=== PATIENT | female | born 1940 | race Caucasian/White ===

== ENCOUNTER → 2017-11-12 09:16 | Outpatient (CLI) | payer MEDICARE, OTHER, SELFPAY ==
--- NOTE | 2017-11-12 | DI.MG.S_ITS ---
UNILATERAL LEFT DIGITAL SCREENING MAMMOGRAM 3D/2D WITH CAD: 11/12/2017 CLINICAL: Routine screening. Personal history of right breast cancer. Family history of breast cancer. Comparison is made to exams dated: 10/24/2016 mammogram, 10/24/2015 mammogram, and 09/02/2014 mammogram - [facility]. The tissue of the left breast is heterogeneously dense. This may lower the sensitivity of mammography. Current study was also evaluated with a Computer Aided Detection (CAD) system. There are benign calcifications in the left breast. There also are post operative findings in the left breast. No significant masses, calcifications, or other findings are seen in the breast. There has been no significant interval change. IMPRESSION: BENIGN There is no mammographic evidence of malignancy. A 1 year screening mammogram is recommended. This exam was interpreted at Station ID: [id number]. NOTE: For mammograms, a report in lay terms will be sent to the patient. Approximately 15% of breast malignancies will not be visualized mammographically. In the management of a palpable breast mass, a negative mammogram must not discourage biopsy of a clinically suspicious lesion. Electronically Signed By: Jean Pierre suazo/beatriz:11/12/2017 10:48:49 letter sent: Normal Exam ACR BI-RADS Category 2: Benign Finding(s) 3342F
[2017-11-12 10:12] LABS: Alanine Aminotransferase 27 IU/L (9-52); Albumin 4.2 g/dL (3.5-5.0); Albumin Globulin Ratio 1.6 (1.0-2.8); Alkaline Phosphatase 65 U/L (38-126); Aspartate Aminotransferase 33 IU/L (14-36); BUN Creatinine Ratio 16.7 (6-22); Blood Urea Nitrogen 10 mg/dL (7-17); Calcium 9.3 mg/dL (8.4-10.2); Carbon Dioxide 29 mmol/L (22-32); Chloride 104 mmol/L (98-107); Cholesterol 147 mg/dL (140-199); Estimated Glomerular Filt Rate > 60.0 mL/min (>60); Globulin 2.7 g/dL (1.7-4.1); Glucose 99 mg/dL (80-110); HDL Cholesterol 84 mg/dL (40-60); HEMOLYSIS < 15 (0-50); LDL Cholesterol Calculated 47 mg/dL (<100); Sodium 141 mmol/L (137-145); Total Protein 6.9 g/dL (6.3-8.2); Triglycerides 81 mg/dL (35-150)
[2017-11-12 11:12] LABS: Creatinine Urine Random 41.9 mg/dL
[2017-11-12 11:16] LABS: Microalbumi Creatinin Ratio Ur 21.4 ug/mg CR (<30); Microalbumin Urine Random 0.9 mg/dL (0-1.6)
== END ==
PROVIDERS: PCP Registered Nurse; Visit Provider Registered Nurse
DX: Z12.31 Encounter for screening mammogram for malignant neoplasm of breast (principal); Z85.3 Personal history of malignant neoplasm of breast; Z80.3 Family history of malignant neoplasm of breast; I10 Essential (primary) hypertension
CPT/HCPCS: 36415; 77063; 77065; 77067; 80053; 80061; 82043; 82570

== ENCOUNTER → 2017-11-20 09:52 | Outpatient (CLI) | payer MEDICARE, OTHER, SELFPAY ==
--- NOTE | 2017-11-20 09:53 | DI.RAD.S_ITS ---
This blank DEXA report has been sent in error by the PACS system. The correct and complete report will be forthcoming in 1-2 days. Thank you for your patience and understanding. Dictated by: Milvia Melissa MD, PhD on 11/20/2017 at 11:35 Approved by: Milvia Melissa MD, PhD on 11/21/2017 at 16:32
== END ==
PROVIDERS: PCP Registered Nurse; Visit Provider Registered Nurse
DX: M81.0 Age-related osteoporosis without current pathological fracture (principal)
CPT/HCPCS: 77080

== ENCOUNTER → 2018-05-14 13:57 | Outpatient (CLI) | payer MEDICARE, OTHER, SELFPAY ==
--- NOTE | 2018-05-14 14:00 | DI.RAD.S_ITS ---
PROCEDURE: XR CHEST 2V INDICATIONS: Productive cough TECHNIQUE: 2 views of the chest were acquired. COMPARISON: [facility], , CHEST 2 VIEW, 08/26/2015, 11:26. FINDINGS: Surgical changes and devices: None. Lungs and pleura: Lungs are abnormal with chronic interstitial prominence stable over time. Lung volumes are large, COPD is suspected.. No pleural effusions or pneumothorax. Mediastinum: Mediastinal contours are normal. Heart size is normal. Bones and chest wall: No suspicious bony abnormalities. Soft tissues appear unremarkable. IMPRESSION: COPD, chronic interstitial prominence but stable over time. A pneumonia is not identified. Dictated by: Paulo Tang M.D. on 05/14/2018 at 15:52 Approved by: Paulo Tang M.D. on 05/14/2018 at 15:53
== END ==
PROVIDERS: PCP Registered Nurse; Visit Provider Registered Nurse
DX: J44.9 Chronic obstructive pulmonary disease, unspecified (principal)
CPT/HCPCS: 71046

== ENCOUNTER 2019-02-07 09:48 | Observation (INO) | payer MEDICARE, OTHER, SELFPAY ==
[2019-02-07] VITALS (11 sets, daily range): BP systolic 107–169; BP diastolic 52–91; PULSE 85–144; RESP 15–22; TEMP 36.4–36.9; O2SAT 97–99; BMI 18.9
--- NOTE | 2019-02-07 09:58 | DI.CT.S_ITS ---
PROCEDURE: CT HEAD/BRAIN WO CON INDICATIONS: mental status change TECHNIQUE: Noncontrast 4.5 mm thick angled axial sections acquired from the foramen magnum to the vertex, with coronal and sagittal reformats. For radiation dose reduction, the following was used: automated exposure control, adjustment of mA and/or kV according to patient size. COMPARISON: None. FINDINGS: Image quality: Excellent. CSF spaces: Basal cisterns are patent. No extra-axial fluid collections. Ventricles are normal in size and shape. Brain: No midline shift. No intracranial masses or hemorrhage. Perez-white matter interface is normal. Skull and face: Calvarium and visualized facial bones are intact, without suspicious lesions. Sinuses: Visualized sinuses and mastoids are clear. IMPRESSION: Age-appropriate head CT. No acute intracranial hemorrhage. Dictated by: Jovi Shine M.D. on 02/07/2019 at 9:42 Approved by: Jovi Shine M.D. on 02/07/2019 at 9:43
--- NOTE | 2019-02-07 09:59 | DI.RAD.S_ITS ---
PROCEDURE: XR CHEST 1V INDICATIONS: fatigue, SOB, confusion TECHNIQUE: One view of the chest was acquired. COMPARISON: [facility], CR, XR CHEST 2V, 05/14/2018, 14:03. FINDINGS: Surgical changes and devices: None. Lungs and pleura: Lungs are clear. There may be mild scarring within the lung apices. No effusion or pneumothorax. Mediastinum: Mediastinal contours appear normal. Heart size is enlarged. Bones and chest wall: No suspicious bony lesions. Overlying soft tissues appear unremarkable. IMPRESSION: Cardiomegaly without overt heart failure. No definite pneumonia. Dictated by: Jovi Shine M.D. on 02/07/2019 at 9:41 Approved by: Jovi Shine M.D. on 02/07/2019 at 9:42
[2019-02-07] MEDS: SODIUM CHLORIDE 0.9% 1,000 ML 150 ML IV (10:06)
[2019-02-07] MEDS: dilTIAZem 5 MG/ML SDV 10 MG IV (10:06)
--- NOTE | 2019-02-07 10:07 | ED_ITS ---
HPI - Neuro Symptoms/Deficit General Chief Complaint: Neuro Symptoms/Deficit Stated Complaint: Discombobulated Time Seen by Provider: 02/07/19 09:52 Source: family and other Mode of arrival: Ambulatory Limitations: altered mental status History of Present Illness HPI Narrative: 78-year-old female daily smoker with history of hypertension and hyperlipidemia presents with her neighbor and a chief complaint of confusion and not feeling right. She states she started feeling poorly on about and has had a decreased appetite and difficulty performing her normal daily tasks. Today she had had enough and went to get her neighbor who brought her here for evaluation. On arrival she was found to be in a rapid AFib in the 140s. During the check in process she did not know her birthday she was unclear of the month and could not sign her name on the paperwork. She denies any pain or recent injury. She has had no fever or shaking chills. She denies any history of stroke or TIA nor has she ever had atrial fibrillation. Onset (ago): day(s) Timing confirmed by: other Location: speech and altered History of same: No Severity: moderate Quality: weak and constant Relieving factors: none Exacerbating factors: none Context: other On Anticoagulants: No Associated symptoms: confusion Related Data Home Medications Medication Instructions Recorded Confirmed Flaxseed Oil (#FLAXSEED OIL) #0 11/29/10 10/28/18 aspirin #0 11/29/10 10/28/18 ascorbic acid (vitamin C) 500 mg PO QDAY #0 08/27/11 10/28/18 cholecalciferol (vitamin D3) 50 1,000 unit PO DAILY cap 11/05/17 10/28/18 mcg (2,000 unit) capsule multivitamin PO 12/05/17 10/28/18 Previous Rx's Medication Instructions Recorded calcium carbonate 600 mg calcium 600 mg PO DAILY #30 tab 12/05/17 (1,500 mg) tablet alendronate 70 mg tablet 70 mg PO QWEEK #12 tab 10/28/18 lisinopril 10 mg tablet 20 mg PO QDAY #180 tab 10/28/18 metoprolol succinate 50 mg 50 mg PO QDAY #90 tab 10/28/18 tablet,extended release 24 hr simvastatin 20 mg tablet 20 mg PO QDAY #90 tab 10/28/18 Allergies Allergy/AdvReac Type Severity Reaction Status Date / Time No Known Drug Allergies Allergy Unverified 10/28/18 10:26 Review of Systems Constitutional Constitutional: Denies chills, Denies fatigue, Denies fever(s), Denies frequent falls, Denies lethargy and Denies weakness Eyes Eyes: Denies change in vision, Denies eye discharge, Denies irritation and Denies loss of vision ENT Ears, Nose, Mouth, and Throat: Denies change in voice, Denies dizziness, Denies neck pain, Denies sore throat and Denies throat swelling Cardiovascular Cardiovascular: Denies chest pain, Denies irregular heart rhythm, Denies lightheadedness, Denies palpitations, Denies dyspnea, Denies dyspnea on exertion and Denies orthopnea Respiratory Respiratory: Denies cough, Denies dyspnea, Denies dyspnea on exertion and Denies wheezing Gastrointestinal Gastrointestinal: Denies abdominal pain, Denies change in bowel habits, Denies diarrhea, Denies nausea and Denies vomiting Genitourinary Genitourinary: Denies hematuria, Denies flank pain, Denies urinary incontinence and Denies urinary urgency Musculoskeletal Musculoskeletal: Denies back pain, Denies muscle weakness, Denies neck pain, Denies numbness and Denies tingling Integumentary/Breasts Skin/Breast: Denies pruritus, Denies erythema, Denies rash and Denies wounds Neurologic Neurologic: Denies behavioral changes, Reports confusion, Denies dizziness, Denies frequent falls, Denies loss of vision, Denies numbness, Denies tingling and Denies weakness Psychiatric Psychiatric: Denies anxiety, Denies behavioral changes, Reports confusion, Denies depression, Denies homicidal ideation and Denies suicidal ideation Endocrine Endocrine: Denies fatigue, Denies flushing and Denies palpitations Hematologic/Lymphatic Hematologic/Lymphatic: Denies easy bruising Allergic/Immunologic Allergic/Immunologic: Denies urticaria, Denies throat swelling and Denies wheezing Patient History Medical History Breast cancer (Resolved) Cataract (Chronic ~03/2014) History of vaginal delivery (Resolved) Hyperlipidemia (Chronic) Hypertension (Chronic) Surgical History Anesthesia (Resolved) History of right mastectomy (Resolved 12/2002) Family History Brother Age: 73 Prostate cancer Diabetes mellitus Hypertension Child Age: 50 Hypertension High cholesterol Child Age: 47 Diabetes mellitus Hypertension High cholesterol Thrombocytopenic purpura Acid reflux Depression Heart attack Mother Diabetes mellitus Hypertension Stroke Breast cancer Sister Age: 80 Hypertension High cholesterol Family history of thyroid problem Father Pancreatic cancer Social History Smoking Status: Current every day smoker alcohol intake: current substance use type: does not use alcohol intake frequency: 0-2 drinks per day Substance Use Type: does not use Exam Narrative Exam Narrative: GENERAL: [78] year old patient appears stated age. Well- nourished, well-developed patient, in mild distress. Alert but confused. Aware of location, but not date HEAD: Atraumatic. Normocephalic. EYES: Pupils equal round and reactive. Extraocular motions intact. No scleral icterus. No injection or drainage. ENT: Nose without bleeding, purulent drainage. Throat without erythema, tons illar hypertrophy or exudate. Airway patent. NECK: Trachea midline. Non tender CARDIOVASCULAR: tachycardic and irregular rhythm without murmurs, gallops, or rubs. RESPIRATORY: Clear to auscultation. Breath sounds equal bilaterally. No wheezes, rales, or rhonchi. GASTROINTESTINAL: Abdomen soft, non-tender, nondistended. EXTREMITIES: No edema or joint tenderness. BACK: Nontender without deformity or crepitance. No flank tenderness. SKIN: No rash or erythema of visible areas Initial Vital Signs Initial Vital Signs: Vital Signs Temperature 98.1 F 02/07/19 09:50 Pulse Rate 144 H 02/07/19 09:50 Respiratory Rate 22 02/07/19 09:50 Blood Pressure 143/87 H 02/07/19 09:50 Pulse Oximetry 99 02/07/19 09:50 Scores ABCD2 Age >= 60 years: yes Initial BP. Either SBP >= 140 or DBP >= 90.: no Clinical features of the TIA: speech disturbance without weakness Duration of symptoms: >= 60 minutes History of diabetes: no ABCD2 Score: 4 Course Course Course Narrative: improved rapid atrial fib after cardizem, but patient still feeling poorly and a bit confused. Given her multiple comorbidities she will require hospitalization for continued evaluation and stabilization of her newly discovered AFib and possible TIA Orders Ordered: ED Orders 02/07/19 09:54 Basic Metabolic Panel Stat Complete Blood Count AUTO DIFF Stat Ethanol (ETOH) Stat Partial Thromboplastin Time Stat Prothrombin Time INR Stat 02/07/19 09:58 CT head/brain wo con Stat Urine Drug Screen, Rapid Stat EKG-12 Lead Stat 02/07/19 09:59 XR chest 1V Stat 02/07/19 10:51 EKG-12 Lead Stat Sodium Chloride (Normal Saline 0.9%) 1,000 mls @ 150 mls/hr IV CONT ERMIAS Last Admin: 02/07/19 10:06 Dose: 150 mls/hr Documented by: NICOLE Discontinued Medications Aspirin (Aspirin Chew) 324 mg PO NOW ONE Stop: 02/07/19 11:12 Diltiazem HCl (Cardizem) 10 mg IV NOW ONE Stop: 02/07/19 09:59 Last Admin: 02/07/19 10:06 Dose: 10 mg Documented by: NICOLE Vital Signs Vital signs: Vital Signs - 8 hr 02/07/19 09:50 02/07/19 10:00 02/07/19 10:06 Temperature 98.1 F Pulse Rate 144 H 143 H 143 H Respiratory Rate 22 20 Blood Pressure 143/87 H 169/79 H Blood Pressure [Right Arm] 169/79 H Pulse Oximetry 99 98 02/07/19 10:11 02/07/19 10:21 02/07/19 10:34 Temperature Pulse Rate 107 H 88 85 Respiratory Rate 19 18 18 Blood Pressure Blood Pressure [Right Arm] 137/86 141/91 H 134/75 Pulse Oximetry 98 99 98 02/07/19 10:53 Temperature Pulse Rate 90 Respiratory Rate 18 Blood Pressure Blood Pressure [Right Arm] 122/78 Pulse Oximetry 99 MDM - Neuro Symptoms/Deficit Lab Data Result diagrams: 02/07/19 09:54 02/07/19 09:54 Labs: Lab Results 02/07/19 02/07/19 02/07/19 Range/Units 09:54 09:54 09:54 WBC 8.2 (4.5-11.0) X10^3/uL RBC 5.02 (4.0-5.2) X10^6/uL Hgb 16.6 H (12.0-16.0) g/dL Hct 48.0 H (36-46) % MCV 95.5 (80-100) fL MCH 33.0 (26-34) PG MCHC 34.6 (30-36) % RDW 13.9 (11.6-14.8) % Plt Count 361 (150-400) X10^3/uL Neut % (Auto) 63.9 (50-75) % Lymph % (Auto) 28.7 (25-40) % Benton % (Auto) 6.6 (3-14) % Eos % (Auto) 0.3 L (2-4) % Baso % (Auto) 0.5 (0-2) % Neut # (Auto) 5200 (0250-3239) /uL Lymph # (Auto) 2400 (7677-8963) /uL Benton # (Auto) 500 (0-900) /uL Eos # (Auto) 0 (0-450) /uL Baso # (Auto) 0 (0-100) /uL PT 10.6 (10.1-12.7) SECONDS INR 0.9 (0.9-1.3) APTT 35 (26.4-36.2) SECONDS Sodium 134 L (137-145) mmol/L Potassium 4.3 (3.4-5.1) mmol/L Chloride 97 L (98-107) mmol/L Carbon Dioxide 24 (22-32) mmol/L BUN 15 (7-17) mg/dL Creatinine 0.80 (0.52-1.04) mg/dL Estimated GFR > 60.0 (>60) mL/min BUN/Creatinine Ratio 18.8 (6-22) Glucose 168 H (80-110) mg/dL Calcium 9.8 (8.4-10.2) mg/dL Ethyl Alcohol < 10 ( - 10) mg/dL Point of Care Testing Glucose POC [address] scan - head: Radiologist's impression: Aziza Alonzo 78 F [address] [address] [address] Scan Report Signed Patient: MinierLeopoldo moscosoothy LMR#: [id number] : 2Acct:[id number] Age/Sex: 78 / FDate of Service: 02/07/19 Loc: ED Accession Number: [id number] Procedure: CT head/brain wo con Ordering Provider: Brando Ramirez D.O. PROCEDURE: CT HEAD/BRAIN WO CON INDICATIONS: mental status change TECHNIQUE: Noncontrast 4.5 mm thick angled axial sections acquired from the foramen magnum to the vertex, with coronal and sagittal reformats. For radiation dose reduction, the following was used: automated exposure control, adjustment of mA and/or kV according to patient size. COMPARISON: None. FINDINGS: Image quality: Excellent. CSF spaces: Basal cisterns are patent. No extra-axial fluid collections. Ventricles are normal in size and shape. Brain: No midline shift. No intracranial masses or hemorrhage. Perez-white matter interface is normal. Skull and face: Calvarium and visualized facial bones are intact, without suspicious lesions. Sinuses: Visualized sinuses and mastoids are clear. IMPRESSION: Age-appropriate head CT. No acute intracranial hemorrhage. Dictated by: Jovi Shine M.D. on 02/07/2019 at 9:42 Approved by: Jovi Shine M.D. on 02/07/2019 at 9:43 Chest x-ray: Radiologist's impression: [facility] Diagn[facility] DATE TYPE STATUS AUTHOR Hx 02/07/19 09:59 Jovi Shine 02/07/19 09:58 Jovi Shine 05/14/18 14:00 Paulo Tang 11/20/17 09:53 Milvia Melissa 11/20/17 08:00 11/12/17 00:00 Jean Pierre Knapp Dorothy L 78, F0 1940 [facility], [facility] ED R02 51.7kg Neuro Symptoms/Deficit Search Chart No Data to Display NF - Not included in interaction checking ONSET Today 10:53 Aziza Alonzo 78 F [address] [address] XRay Report Signed Patient: ClintonAziza LMR#: [id number] : 1940cct:[id number] Age/Sex: 78 / FDate of Service: 02/07/19 Loc: ED Accession Number: [id number] Procedure: XR chest 1V Ordering Provider: Brando Ramirez D.O. PROCEDURE: XR CHEST 1V INDICATIONS: fatigue, SOB, confusion TECHNIQUE: One view of the chest was acquired. COMPARISON: [facility], CR, XR CHEST 2V, 05/14/2018, 14:03. FINDINGS: Surgical changes and devices: None. Lungs and pleura: Lungs are clear. There may be mild scarring within the lung apices. No effusion or pneumothorax. Mediastinum: Mediastinal contours appear normal. Heart size is enlarged. Bones and chest wall: No suspicious bony lesions. Overlying soft tissues appear unremarkable. IMPRESSION: Cardiomegaly without overt heart failure. No definite pneumonia. Dictated by: Jovi Shine M.D. on 02/07/2019 at 9:41 Approved by: Jovi Shine M.D. on 02/07/2019 at 9:42 ECG Data Interpretation: rapid atrial fib 140s, no ischemic change repeat notes atrial fib at 80, no other ischemia Discharge Plan Departure Patient Disposition: Admitted as Observation Clinical Impression: Brain TIA Atrial fibrillation Qualifiers: Atrial fibrillation type: unspecified Qualified Code(s): I48.91 - Unspecified atrial fibrillation
[2019-02-07 10:10] LABS: INR 0.9 (0.9-1.3); Prothrombin Time 10.6 SECONDS (10.1-12.7)
[2019-02-07 10:12] LABS: PTT Partial Thromboplastin Tim 35 SECONDS (26.4-36.2)
[2019-02-07 10:27] LABS: Add Manual Diff / Slide Review NO; Basophils Absolute Auto 0 /uL (0-100); Basophils Percent Auto 0.5 % (0-2); Eosinophils Absolute Auto 0 /uL (0-450); Eosinophils Percent Auto 0.3 % (2-4); Hemoglobin 16.6 g/dL (12.0-16.0); Lymphocytes Absolute Auto 2400 /uL (1100-4500); Lymphocytes Percent Auto 28.7 % (25-40); Mean Corpuscular HGB Conc 34.6 % (30-36); Mean Corpuscular Volume 95.5 fL (80-100); Monocytes Absolute Auto 500 /uL (0-900); Monocytes Percent Auto 6.6 % (3-14); Neutrophils Absolute Auto 5200 /uL (1500-7000); Neutrophils Percent Auto 63.9 % (50-75); Platelet Count 361 X10^3/uL (150-400); Red Blood Cell Count 5.02 X10^6/uL (4.0-5.2); Red Cell Distribution Width 13.9 % (11.6-14.8); White Blood Cell Count 8.2 X10^3/uL (4.5-11.0)
--- NOTE | 2019-02-07 10:29 | PC.NURSE ---
+ moving all extremities equally well w/ equal strength. Balance appears to be intact. When answering questions pt's speech is slow to finish sentences and she has word searching. She states she feels as if she woke up feeling well but also states that she has not felt 'all there' over the last two days. She has not been smoking as much as she usually does. Neighbor present states that she is normally completely a/o x 4 w/o any difficulty w/ speech or functioning.
--- NOTE | 2019-02-07 10:34 | PC.NURSE ---
Speech fluidity and content / memory much improved. Neighbor states she is 'almost' at baseline.
[2019-02-07 10:39] LABS: BUN Creatinine Ratio 18.8 (6-22); Blood Urea Nitrogen 15 mg/dL (7-17); Calcium 9.8 mg/dL (8.4-10.2); Carbon Dioxide 24 mmol/L (22-32); Chloride 97 mmol/L (98-107); Estimated Glomerular Filt Rate > 60.0 mL/min (>60); Ethanol (ETOH) < 10 mg/dL; Glucose 168 mg/dL (80-110); HEMOLYSIS < 15 (0-50); Potassium 4.3 mmol/L (3.4-5.1); Sodium 134 mmol/L (137-145)
[2019-02-07] MEDS: ASPIRIN 81 MG CHEW TAB 324 MG PO (12:07)
[2019-02-07 14:00] LABS: Ur Creatinine Normal (Normal); Ur Specific Gravity Normal (Normal); Urine pH Normal (Normal)
[2019-02-07 14:01] LABS: UR Morphine/Opiate cutoff 300 Negative (Negative); Urine Amphetamines Negative (Negative); Urine Barbiturates Negative (Negative); Urine Benzodiazepines Negative (Negative); Urine Cocaine Negative (Negative); Urine MDMA Negative (Negative); Urine Methadone Negative (Negative); Urine Methamphetamines Negative (Negative); Urine Oxycodone Negative (Negative); Urine Phencyclidine Negative (Negative); Urine Tetrahydrocannabinol Negative (Negative); Urine Tricyclic Antidepressant Negative (Negative)
--- NOTE | 2019-02-07 14:16 | DI.ECHO.S_ITS ---
[facility]---------+ [facility] +---------+ : : [address] : : : : [id number] : : : : Phone: [phone] Echocardiogram Report + + :Name: SAMINA HANSON Study Date: 02/08/2019 Height: 65 in : :[facility] Weight: 114 lb : : Gender: Female BSA: 1.6 m2 : :: 1940 Age: 78 yrs BP: 160/86 mmHg: :Reason For Study: Atrial fibrillation : :Ordering Physician: Zhen : :Hospitalist Performed By: Serge Salinas : :Referring: RENETTA MASSEY : + + Interpretation Summary Left ventricular systolic function is normal without focal wall motion abnormalities with the ejection fraction visually estimated to be 65-70%. There is borderline concentric left ventricular hypertrophy but diastolic function could not be accurately assessed due to atrial fibrillation. The right ventricle is borderline dilated and right ventricular systolic function is mildly reduced. Pulmonary artery pressures cannot be estimated because of the lack of a measurable TR jet velocity but the IVC suggests a CVP of around 3 mmHg and Doppler findings do not suggest pulmonary hypertension. The left atrium is mildly dilated. There is mild mitral regurgitation and mild to moderate tricuspid regurgitation but no other significant valvular heart disease. The ascending aorta is mildly enlarged. There is mild luminal irregularity and echogenicity in the abdominal aorta, suggestive of aortic atherosclerotic disease. The patient was in atrial fibrillation with heart rates between 78-92 bpm during the exam. Procedure: A two-dimensional transthoracic echocardiogram with color flow and Doppler was performed. The study quality was technically adequate. There is no prior echocardiogram noted for this patient. The patient was in atrial fibrillation with heart rates between 78-92 bpm during the exam. Left Ventricle: The left ventricle is normal in size. There is borderline concentric left ventricular hypertrophy. Proximal septal thickening is noted. Left ventricular systolic function is normal without focal wall motion abnormalities. The ejection fraction is estimated to be 65-70%. Diastolic function could not be accurately assessed due to atrial fibrillation. Right Ventricle: The right ventricle is borderline dilated. Right ventricular systolic function is mildly reduced. Atria: The left atrium is mildly dilated. Right atrial size is normal. The interatrial septum is intact with no evidence for an atrial septal defect. Mitral Valve: There is moderate to severe mitral annular calcification. The mitral valve leaflets appear borderline thickened, but open well. There is mild mitral regurgitation. Aortic Valve: The aortic valve is trileaflet. The aortic valve is mildly calcified. There is minimally reduced leaflet mobility. There is no aortic valve stenosis. No aortic regurgitation is present. Tricuspid Valve: The tricuspid valve is normal. There is mild to moderate tricuspid regurgitation. Pulmonary artery pressures cannot be estimated because of the lack of a measurable TR jet velocity but the IVC suggests a CVP of around 3 mmHg. Doppler findings do not suggest pulmonary hypertension. Pulmonic Valve: The pulmonic valve leaflets are thin and pliable; valve motion is normal. There is no pulmonic valvular regurgitation. There is no other significant valvular heart disease. Great Vessels: The aortic root is normal size. The ascending aorta is mildly enlarged. There is mild luminal irregularity and echogenicity in the abdominal aorta, suggestive of aortic atherosclerotic disease. The pulmonary artery is normal size. The IVC is of normal diameter and collapses greater than 50% with a sniff. This suggests a low right atrial pressure of 3 mm Hg. Pericardium/ Pleura There is no pericardial effusion. There is no pleural effusion. MMode/2D Measurements & Calculations LVIDd: 4.2 cm LVOT diam: 2.0 cm LV talamantes. diameter/BSA (cm/m^2): 2.7 Ao root diam: 3.3 cm asc Aorta Diam: 3.5 cm Ao Arch Diam (Prox Trans): 2.5 cm LA A2 area: 24.3 cm2 RA long axis: 5.4 cm LA A4 area: 15.2 cm2 RA area: 14.4 cm2 LA length (vol): 5.6 cm RA vol: 32.5 ml LA vol: 56.0 ml RA : 20.9 ml/m2 LA vol index: 35.9 ml/m2 IVC diam: 1.8 cm RVD1 (basal): 4.2 cm TAPSE: 1.4 cm Doppler Measurements & Calculations Ao V2 max: 121.9 cm/sec LVOT Max Star: 111.1 cm/sec Ao V2 mean: 93.7 cm/sec LV V1 max P.0 mmHg Ao max P.0 mmHg LV V1 VTI: 18.9 cm Ao mean P.8 mmHg SUSY(I,D): 3.0 cm2 Ao V2 VTI: 19.1 cm SUSY(V,D): 2.8 cm2 sev ratio: 0.99 SUSY indexed to BSA (cm^2/m^2): 1.9 MV E max star: 91.9 cm/sec SV(LVOT): 57.2 ml Reading Physician:DYAN
--- NOTE | 2019-02-07 14:22 | P.HP_ITS ---
History of Present Illness History of Present Illness Date Patient Seen: 02/07/19 Chief complaint: Discombobulated Narrative: Patient is a 78-year-old female with a history of hypertension, hyperlipidemia, COPD, osteoporosis, who was in her usual state of health until yesterday. The patient stated that she felt lightheaded. Today in addition to feeling lightheaded she felt confused. She krista neighbors to bring her to the hospital because of the confusion and lightheadedness. The patient had no blurred vision double vision, slurred speech, weakness of her arms or legs, she had no facial droop. The patient was seen and evaluated in the emergency department. She was found to be in atrial fibrillation with a rapid ventricular response rate, she was given 1 dose of Cardizem with improvement of her heart rate to the 80s. Since she has arrived to the floor her heart rate is now 135. She denies any orthopnea PND pedal edema or chest pain. She has had no fever chills or cough. She has no nausea vomiting or diarrhea. She denies any dysuria hematuria or the patient is a smoker. She has over 50 pack year history of smoking and currently smokes a half a pack per day. She was offered a nicotine patch for her nicotine addiction which she has since declined. Because of her confusion CT of the head was obtained which was negative. Patient is admitted to the hospital for further evaluation of atrial fibrillation. Patient History Medical History Breast cancer (Resolved) Cataract (Chronic ~03/2014) History of vaginal delivery (Resolved) Hyperlipidemia (Chronic) Hypertension (Chronic) Surgical History Anesthesia (Resolved) History of right mastectomy (Resolved 12/2002) Family & Social History Family History Brother Age: 73 Prostate cancer Diabetes mellitus Hypertension Child Age: 50 Hypertension High cholesterol Child Age: 47 Diabetes mellitus Hypertension High cholesterol Thrombocytopenic purpura Acid reflux Depression Heart attack Mother Diabetes mellitus Hypertension Stroke Breast cancer Sister Age: 80 Hypertension High cholesterol Family history of thyroid problem Father Pancreatic cancer Social History: household members none Prior Living Arrangements Mobile home Safety & Behavioral: Feels Safe in Current Yes Environment Been Physically Hurt or No Threatened By a Person Suicidal Ideation Description None Suicide Plan Description No Plan Tobacco & Substance use: Smoking Status Current every day smoker alcohol intake current alcohol intake frequency 0-2 drinks per day Substance Use Type does not use Meds Home Medications and Allergies Home Medications Medication Instructions Recorded Confirmed Type aspirin 81 mg PO DAILY #0 11/29/10 02/07/19 History cholecalciferol (vitamin D3) 50 2,000 unit PO DAILY cap 11/05/17 02/07/19 History mcg (2,000 unit) capsule calcium carbonate 600 mg calcium 600 mg PO DAILY #30 tab 12/05/17 02/07/19 Rx (1,500 mg) tablet alendronate 70 mg tablet 70 mg PO QWEEK #12 tab 10/28/18 02/07/19 Rx lisinopril 10 mg tablet 20 mg PO QDAY #180 tab 10/28/18 02/07/19 Rx metoprolol succinate 50 mg 50 mg PO QDAY #90 tab 10/28/18 02/07/19 Rx tablet,extended release 24 hr simvastatin 20 mg tablet 20 mg PO QDAY #90 tab 10/28/18 02/07/19 Rx latanoprost 1 drp EYE-BOTH DAILY 02/07/19 02/07/19 History timolol maleate 1 drp EYE-BOTH BID 02/07/19 02/07/19 History Allergies Allergy/AdvReac Type Severity Reaction Status Date / Time No Known Drug Allergies Allergy Unverified 10/28/18 10:26 Review of Systems Review of Systems ROS Unobtainable: All systems reviewed & are unremarkable except as noted in HPI and below Exam Vital Signs (past 8 hours): - 02/07/19 09:50 02/07/19 10:00 02/07/19 10:06 Temperature 98.1 F Pulse Rate 144 H 143 H 143 H Respiratory Rate 22 20 Blood Pressure 143/87 H 169/79 H Blood Pressure [Right Arm] 169/79 H Pulse Oximetry 99 98 02/07/19 10:11 02/07/19 10:21 02/07/19 10:34 Temperature Pulse Rate 107 H 88 85 Respiratory Rate 19 18 18 Blood Pressure Blood Pressure [Right Arm] 137/86 141/91 H 134/75 Pulse Oximetry 98 99 98 02/07/19 10:53 02/07/19 11:58 02/07/19 13:15 Temperature 97.5 F L Pulse Rate 90 96 H 102 H Respiratory Rate 18 18 16 Blood Pressure 160/86 H Blood Pressure [Right Arm] 122/78 147/65 H Pulse Oximetry 99 97 99 Oxygen Delivery Method Room Air Oxygen Flow Rate 0 Narrative Exam Narrative: Pleasant female sitting in a chair in no obvious distress HEENT: Normocephalic atraumatic, extraocular muscles are intact, visual ortega are intact to confrontation, oropharynx is clear, neck is supple, there is no thyromegaly, carotid bruits, or JVD noted Lungs: Clear to auscultation Cardiac exam: Tachycardic, irregularly irregular, 3/6 systolic ejection murmur Abdomen: Soft nontender nondistended, no hepatosplenomegaly Extremities: No edema Skin exam: No lesions noted Psychiatric exam: The patient is awake alert and appropriate, she answers questions appropriately she has no delusions or hallucinations. Neuro exam: Her NIH score is 0. Her cranial nerves 2-12 are intact, strength is symmetric and equal, sensation is grossly intact reflexes are brisk and equal, gait is not assessed Objective Labs Result Diagrams: 02/07/19 09:54 02/07/19 09:54 Labs: Laboratory Results - last 24 hr 02/07/19 02/07/19 02/07/19 09:54 09:54 09:54 WBC 8.2 RBC 5.02 Hgb 16.6 H Hct 48.0 H MCV 95.5 MCH 33.0 MCHC 34.6 RDW 13.9 Plt Count 361 Neut % (Auto) 63.9 Lymph % (Auto) 28.7 [place] % (Auto) 6.6 Eos % (Auto) 0.3 L Baso % (Auto) 0.5 Neut # (Auto) 5200 Lymph # (Auto) 2400 [place] # (Auto) 500 Eos # (Auto) 0 Baso # (Auto) 0 PT 10.6 INR 0.9 APTT 35 Sodium 134 L Potassium 4.3 Chloride 97 L Carbon Dioxide 24 BUN 15 Creatinine 0.80 Estimated GFR > 60.0 BUN/Creatinine Ratio 18.8 Glucose 168 H Calcium 9.8 U Morph 300 ng/mL cutoff Ur Oxycodone Screen Urine Methadone Screen Ur Barbiturates Screen U Tricyclic Antidepress Ur Phencyclidine Scrn Ur Amphetamines Screen U Methamphetamines Scrn Ur MDMA Scrn (Ecstasy) U Benzodiazepines Scrn Urine Cocaine Screen U Marijuana (THC) Screen Ethyl Alcohol < 10 02/07/19 13:15 WBC RBC Hgb Hct MCV MCH MCHC RDW Plt Count Neut % (Auto) Lymph % (Auto) [place] % (Auto) Eos % (Auto) Baso % (Auto) Neut # (Auto) Lymph # (Auto) [place] # (Auto) Eos # (Auto) Baso # (Auto) PT INR APTT Sodium Potassium Chloride Carbon Dioxide BUN Creatinine Estimated GFR BUN/Creatinine Ratio Glucose Calcium U Morph 300 ng/mL cutoff Negative Ur Oxycodone Screen Negative Urine Methadone Screen Negative Ur Barbiturates Screen Negative U Tricyclic Antidepress Negative Ur Phencyclidine Scrn Negative Ur Amphetamines Screen Negative U Methamphetamines Scrn Negative Ur MDMA Scrn (Ecstasy) Negative U Benzodiazepines Scrn Negative Urine Cocaine Screen Negative U Marijuana (THC) Screen Negative Ethyl Alcohol Assessment & Plan Assessment & Plan narrative: Impression 1. 78-year-old female admitted to the hospital for lightheadedness and confusion. On exam in the emergency department the patient was found to have atrial fibrillation with a rapid ventricular response rate. -patient will be admitted to the hospital for further evaluation. She will be placed on metoprolol 50 Q 6. This is a normal medication for her. She typically takes 50 mg per day. Will obtain a BNP to rule out the possibility of heart failure, will obtain a cardiac echo to look at LV function as well as valvular abnormalities given her history of a murmur on exam. The patient has a chads Vasc score of 4. Indicating that the patient would benefit from anticoagulation. We have discussed the possibility of starting Xarelto. It would consider initiating this after echocardiogram results. 2. Confusion, suspect this is related to rapid atrial fibrillation. It no evidence of ischemic stroke or TIA at this time. Will continue her baby aspirin per day 3. Hyperlipidemia, will obtain a fasting lipid profile, continue her simvastatin at this time 4. Hypertension, patient was previously managed with lisinopril in addition to metoprolol. Given her atrial fibrillation in need for rate control will hold her lisinopril, will increase metoprolol to 50 mg Q 6. Will evaluate echo and if the patient has reduced systolic function consider restarting lisinopril. 5. Osteoporosis, patient will continue on her bisphosphonate, calcium, and vitamin-D. Code status patient indicates she is a full code will note that a regular accordingly. Patient will be in under observation status as it is expected that she will require less than 48 hours of care. Quality VTE Deep Vein Thrombosis/Pulmonary Embolism Present on Admission: No
[2019-02-07] MEDS: METOPROLOL IR 50 MG TABLET PO ×2 (14:24→17:27)
--- NOTE | 2019-02-07 14:48 | PC.NURSE ---
1300 Pt arrived from ED via tretcher. Pt able to ambulate to BRP, then to the bed. Pt denies any confusion, speech is clear. Collected a urine specimen. Pt even gait, walks w/o assist. SL to L FA. 1330 Dr Zapata in to assess Pt. on tele, a fib, ht rt ranges from 98 to 138. MD aware. 1400 Pt oob chair, ate sandwich/yogurt. Inst on safety, use of call light. Pt
[2019-02-07 16:08] LABS: Cholesterol 173 mg/dL (140-199); HDL Cholesterol 62 mg/dL (40-60); LDL Cholesterol Calculated 86 mg/dL (<100); Triglycerides 126 mg/dL (35-150)
[2019-02-07 16:13] LABS: B Type Natriuretic Peptide 599 (<100)
[2019-02-07] MEDS: TIMOLOL 0.5% OPHTH 1 DROPS EYE-BOTH (20:19)
[2019-02-07] MEDS: LATANOPROST 0.005% OPHTH 2.5 ML 1 DROPS EYE-BOTH (20:21)
[2019-02-07] MEDS: SIMVASTATIN 20 MG TABLET PO (20:22)
[2019-02-08 00:05] VITALS: BP 110/41; PULSE 82; RESP 19; TEMP 36.8; O2SAT 97
[2019-02-08] MEDS: METOPROLOL IR 50 MG TABLET PO ×3 (00:14→12:39)
--- NOTE | 2019-02-08 03:04 | PC.NURSE ---
Pt was hypotensive/tachycardic at 0000, VS 110/41 HR 82. Ekaterina MICHELE notified, asked if she wanted me to still give 0000 metoprolol and Ekaterina said she still wanted me to administer 50mg metoprolol. Pt tele: A-fib. Pt denies pain, nausea, dizziness. Call light is in within reach.
[2019-02-08 05:23] VITALS: BP 127/68; PULSE 92; RESP 17; TEMP 36.5; O2SAT 96
[2019-02-08 07:43] VITALS: BP 127/82; PULSE 77; RESP 16; TEMP 36.8; O2SAT 96
[2019-02-08] MEDS: TIMOLOL 0.5% OPHTH 1 DROPS EYE-BOTH (08:51)
[2019-02-08] MEDS: CALCIUM CARBONATE 600 MG TABLET PO (08:51)
[2019-02-08] MEDS: CHOLECALCIFEROL (VITAMIN D3) 1,000 UNIT TABLET 2000 UNIT PO (08:51)
[2019-02-08 08:56] LABS: BUN Creatinine Ratio 18.3 (6-22); Blood Urea Nitrogen 11 mg/dL (7-17); Calcium 9.2 mg/dL (8.4-10.2); Carbon Dioxide 28 mmol/L (22-32); Chloride 99 mmol/L (98-107); Estimated Glomerular Filt Rate > 60.0 mL/min (>60); Glucose 119 mg/dL (80-110); HEMOLYSIS < 15 (0-50); Potassium 4.3 mmol/L (3.4-5.1); Sodium 137 mmol/L (137-145)
--- NOTE | 2019-02-08 10:01 | PM.DS.1 ---
History of Present Illness History of Present Illness Chief complaint: Discombobulated Narrative: Patient is a 78-year-old female with a history of hypertension, hyperlipidemia, COPD, osteoporosis, who was in her usual state of health until yesterday. The patient stated that she felt lightheaded. Today in addition to feeling lightheaded she felt confused. She krista neighbors to bring her to the hospital because of the confusion and lightheadedness. The patient had no blurred vision double vision, slurred speech, weakness of her arms or legs, she had no facial droop. The patient was seen and evaluated in the emergency department. She was found to be in atrial fibrillation with a rapid ventricular response rate, she was given 1 dose of Cardizem with improvement of her heart rate to the 80s. Since she has arrived to the floor her heart rate is now 135. She denies any orthopnea PND pedal edema or chest pain. She has had no fever chills or cough. She has no nausea vomiting or diarrhea. She denies any dysuria hematuria or the patient is a smoker. She has over 50 pack year history of smoking and currently smokes a half a pack per day. She was offered a nicotine patch for her nicotine addiction which she has since declined. Because of her confusion CT of the head was obtained which was negative. Patient is admitted to the hospital for further evaluation of atrial fibrillation. Discharge Providers Provider Date of admission: 02/07/19 11:38 Discharge Date: 02/08/19 Primary care physician: MICHELE Terrazas Discharge provider: Zahida Zapata MD Summary Hospital Course Discharge Diagnosis: 1. New onset atrial fibrillation, with a rapid ventricular response rate 2. Hypertension 3. Osteoporosis 4. Confusion, now resolved 5. No evidence to suggest TIA Hospital Course: The patient is a 78-year-old female was admitted to the hospital with rapid atrial fibrillation. The patient reported having lightheadedness the prior day to admission. She felt somewhat confused on the day of admission. Patient presented to the emergency room and was evaluated. CT scan of her head was negative. The patient was found to be in atrial fibrillation with a rapid ventricular response rate. She had her lisinopril held. She was placed on a higher dose of metoprolol. Her heart rate improved. She remained in atrial fibrillation. As her chads Vasc score is greater than 2 patient will be anticoagulated with Xarelto at discharge. The patient is awaiting cardiac echo. Once the cardiac echo is done she will be discharged. The plan is to discharge her on a higher dose of metoprolol, and Xarelto. The patient is agreeable and anxious to discharge home. Status at Discharge Cognitive/behavioral status at discharge: oriented Functional status at discharge: independent ambulation Overall status at discharge: patient is back to baseline Time Spent with Patient Time spent: Less than 30 minutes Exam Vital Signs (past 8 hours): - 02/08/19 05:23 02/08/19 07:43 Temperature 97.7 F 98.2 F Pulse Rate 92 H 77 Respiratory Rate 17 16 Blood Pressure 127/68 127/82 Pulse Oximetry 96 96 Oxygen Delivery Method Room Air Oxygen Flow Rate 0 Narrative Exam Narrative: Pleasant female in no obvious distress Lungs: Clear to auscultation Cardiac exam: Irregularly irregular normal S1-S2 with a 3/6 systolic ejection murmur Abdomen: Soft nontender nondistended Extremities: No edema Objective Labs Result Diagrams: 02/07/19 09:54 02/08/19 08:23 Labs: Laboratory Results - last 24 hr 02/07/19 02/07/19 02/07/19 09:54 09:54 09:54 WBC 8.2 RBC 5.02 Hgb 16.6 H Hct 48.0 H MCV 95.5 MCH 33.0 MCHC 34.6 RDW 13.9 Plt Count 361 Neut % (Auto) 63.9 Lymph % (Auto) 28.7 [place] % (Auto) 6.6 Eos % (Auto) 0.3 L Baso % (Auto) 0.5 Neut # (Auto) 5200 Lymph # (Auto) 2400 [place] # (Auto) 500 Eos # (Auto) 0 Baso # (Auto) 0 PT 10.6 INR 0.9 APTT 35 Sodium 134 L Potassium 4.3 Chloride 97 L Carbon Dioxide 24 BUN 15 Creatinine 0.80 Estimated GFR > 60.0 BUN/Creatinine Ratio 18.8 Glucose 168 H Calcium 9.8 B-Natriuretic Peptide Triglycerides Cholesterol LDL Cholesterol, Calc HDL Cholesterol U Morph 300 ng/mL cutoff Ur Oxycodone Screen Urine Methadone Screen Ur Barbiturates Screen U Tricyclic Antidepress Ur Phencyclidine Scrn Ur Amphetamines Screen U Methamphetamines Scrn Ur MDMA Scrn (Ecstasy) U Benzodiazepines Scrn Urine Cocaine Screen U Marijuana (THC) Screen Ethyl Alcohol < 10 02/07/19 02/07/19 02/07/19 13:15 15:29 15:39 WBC RBC Hgb Hct MCV MCH MCHC RDW Plt Count Neut % (Auto) Lymph % (Auto) [place] % (Auto) Eos % (Auto) Baso % (Auto) Neut # (Auto) Lymph # (Auto) [place] # (Auto) Eos # (Auto) Baso # (Auto) PT INR APTT Sodium Potassium Chloride Carbon Dioxide BUN Creatinine Estimated GFR BUN/Creatinine Ratio Glucose Calcium B-Natriuretic Peptide 599 H Triglycerides 126 Cholesterol 173 LDL Cholesterol, Calc 86 HDL Cholesterol 62 H U Morph 300 ng/mL cutoff Negative Ur Oxycodone Screen Negative Urine Methadone Screen Negative Ur Barbiturates Screen Negative U Tricyclic Antidepress Negative Ur Phencyclidine Scrn Negative Ur Amphetamines Screen Negative U Methamphetamines Scrn Negative Ur MDMA Scrn (Ecstasy) Negative U Benzodiazepines Scrn Negative Urine Cocaine Screen Negative U Marijuana (THC) Screen Negative Ethyl Alcohol 02/08/19 08:23 WBC RBC Hgb Hct MCV MCH MCHC RDW Plt Count Neut % (Auto) Lymph % (Auto) [place] % (Auto) Eos % (Auto) Baso % (Auto) Neut # (Auto) Lymph # (Auto) [place] # (Auto) Eos # (Auto) Baso # (Auto) PT INR APTT Sodium 137 Potassium 4.3 Chloride 99 Carbon Dioxide 28 BUN 11 Creatinine 0.60 Estimated GFR > 60.0 BUN/Creatinine Ratio 18.3 Glucose 119 H Calcium 9.2 B-Natriuretic Peptide Triglycerides Cholesterol LDL Cholesterol, Calc HDL Cholesterol U Morph 300 ng/mL cutoff Ur Oxycodone Screen Urine Methadone Screen Ur Barbiturates Screen U Tricyclic Antidepress Ur Phencyclidine Scrn Ur Amphetamines Screen U Methamphetamines Scrn Ur MDMA Scrn (Ecstasy) U Benzodiazepines Scrn Urine Cocaine Screen U Marijuana (THC) Screen Ethyl Alcohol Discharge Plan Discharge Plan Discharge Problem: Atrial fibrillation, Brain TIA Patient Disposition: Home Discharge comment: Patient to be discharged home once echocardiogram has been completed Discharge orders & Medications Prescriptions: New metoprolol tartrate 100 mg tablet 100 mg PO BID Qty: 60 RF: 3 Xarelto 15 mg tablet 20 mg PO DAILY Qty: 30 RF: 0 Continued cholecalciferol (vitamin D3) 2,000 unit capsule 2,000 unit PO DAILY RF: 0 calcium carbonate [Calcium 600] 600 mg calcium (1,500 mg) tablet 600 mg PO DAILY Qty: 30 RF: 0 alendronate [Fosamax] 70 mg tablet 70 mg PO QWEEK Qty: 12 RF: 2 simvastatin 20 mg tablet 20 mg PO QDAY Qty: 90 RF: 3 latanoprost 0.005 % drops 1 drp EYE-BOTH DAILY RF: 0 timolol maleate 0.5 % drops 1 drp EYE-BOTH BID RF: 0 Discontinued aspirin 81 MG tablet,delayed release (DR/EC) 81 mg PO DAILY Qty: 0 RF: 0 metoprolol succinate 50 mg tablet extended release 24 hr 50 mg PO QDAY Qty: 90 RF: 3 lisinopril 10 mg tablet 20 mg PO QDAY Qty: 180 RF: 3 Follow up/Referrals: Gifty Baker ARNP [Primary Care Provider] - Diet/Activity/Treatments Diet: Diet as Tolerated, Low-fat and Low-sodium Discharge Data Primary Care Provider: Gifty Baker Attending Provider: Zahida Zapata Admit Date/Time: 02/07/19 11:38 Quality VTE Deep Vein Thrombosis/Pulmonary Embolism Present on Admission: No
[2019-02-08 11:35] VITALS: BP 104/66; PULSE 83; RESP 18; TEMP 36.5; O2SAT 97
--- NOTE | 2019-02-08 14:19 | CM.DANOTE ---
DCP assessment: EMR reviewed: Patient is a 78 yr old female who was admitted to the hospital under OBS status for confusion. Patient PCP is Dr. Baker. RN/CM met with patient at the bed side. Patient was alert and oriented x3 at time of CM meeting. Patient is [place] at [place] and drives independently. Patient currently lives alone but is close with neighbor. Patient had an ECHO today and is planning to D/c home when stable. 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 Yes Advance Directives on File No History Provided By Patient Has Patient been admitted in last 30 No days? Prior Living Arrangements Mobile home Household Members none Type of transporation used prior to Drives own vehicle admit Independent with ADL's Yes Is patient alert and oriented? Yes Caregiver for Another No Barriers to Discharge No Discharge Plan Home Referrals Initiated None needed Whiteboard Updated in Patient Room with Yes name and ext. # of Electric Knife Operator Review Status In Process Next Review Type Continued Stay Review
== END 2019-02-08 14:36 | disposition home or self-care (01) ==
LOC: ED 11:11 → AC 11:39
PROVIDERS: Nurse Practitioner Gerontology; Admitting Provider Internal Medicine; Emergency Provider Emergency Medicine; PCP Registered Nurse; Visit Provider Internal Medicine
DX: I48.91 Unspecified atrial fibrillation (principal); R29.818 Other symptoms and signs involving the nervous system; I10 Essential (primary) hypertension; E78.5 Hyperlipidemia, unspecified; M81.0 Age-related osteoporosis without current pathological fracture; J44.9 Chronic obstructive pulmonary disease, unspecified; R41.0 Disorientation, unspecified; F17.210 Nicotine dependence, cigarettes, uncomplicated
CPT/HCPCS: 36415; 70450; 71045; 80048; 80061; 80305; 80320; 82962; 83880; 85025; 85610; 85730; 93005; 93306; 96361; 96374; 99285; G0378

== ENCOUNTER → 2019-05-12 09:41 | Outpatient (CLI) | payer MEDICARE, OTHER, SELFPAY ==
[2019-02-07 12:26] VITALS: BMI 18.9
--- NOTE | 2019-05-12 09:44 | DI.CT.S_ITS ---
PROCEDURE: CT SOFT TISSUE NECK W CON INDICATIONS: mass, neck and weight loss TECHNIQUE: After the administration of intravenous contrast, 3.0 mm axial sections acquired from the sella to the aortic arch. Additional oblique axial 3.0 mm sections acquired through the pharynx. 3 mm thick coronal and sagittal reformats were generated. For radiation dose reduction, the following was used: automated exposure control. COMPARISON: None. FINDINGS: Image quality: Excellent. Lymph nodes: No enlarged lymph nodes seen throughout the neck. Vessels: Visualized vasculature appears patent. Neck spaces: The oropharynx, nasopharynx, and pharynx demonstrate no mucosal lesions. The vocal cords, false vocal cords, pyriform sinuses, epiglottis, vallecula, and tongue base all appear normal. Extramucosal spaces appear unremarkable. Glands: The parotid and submandibular glands appear normal. Thyroid gland appears normal. Miscellaneous: Visualized brain and orbits appear normal. Lung apices appear abnormal, with centrilobular emphysematous change, and a mildly spiculated lateral right apical masslike structure abutting the pleural surface measuring up to 8 x 8 x 11 mm. A larger likely malignant mass is present more inferiorly anteriorly near the midline, within the lung parenchyma comprised of lobulated margination of soft tissue measuring up to 1 point for centimeters transverse, 2.9 cm AP, and approximately 1.5 cm craniocaudad. This extends below the imaging margin. Superficial soft tissues appear normal. Bones: No suspicious bony lesions. Visualized sinuses and mastoids appear unremarkable. IMPRESSION: A prior smoking history is presumed given the pattern of centrilobular emphysematous change management administrator the upper lobes bilaterally. A discrete mucosal mass or soft tissue adenopathy is not found. There is, however, a finding of 2 potentially malignant masses within the right upper lobe, the largest of which is located anteriorly near the right mediastinal border measuring up to 2.9 x 1.4 x 1.[address] cm. [address] medicine PET CT scanning likely is warranted given this finding and because this larger mass is likely malignant it may be warranted to also obtain staging CT scanning. Dictated by: Paulo Tang M.D. on 05/12/2019 at 10:41 Approved by: Paulo Tang M.D. on 05/12/2019 at 10:51
[2019-05-12 10:11] LABS: BUN Creatinine Ratio 17.1 (6-22); Blood Urea Nitrogen 12 mg/dL (7-17); Estimated Glomerular Filt Rate > 60.0 mL/min (>60)
== END ==
PROVIDERS: PCP Nurse Practitioner; Referring Provider Nurse Practitioner; Visit Provider Nurse Practitioner
DX: Z01.812 Encounter for preprocedural laboratory examination (principal); R63.4 Abnormal weight loss; R91.8 Other nonspecific abnormal finding of lung field
CPT/HCPCS: 36415; 70491; 82565; 84520; Q9967

== ENCOUNTER → 2019-06-12 11:05 | Outpatient (CLI) | payer MEDICARE, OTHER, SELFPAY ==
[2019-02-07 12:26] VITALS: BMI 18.9
--- NOTE | 2019-06-12 11:08 | DI.MRI.S_ITS ---
PROCEDURE: MR THORACIC SPINE WO/W CON INDICATIONS: abnormal pet scan TECHNIQUE: Noncontrast sagittal T1 spin echo and T2 fast spin echo, sagittal STIR, axial T1 and T2 fast spin echo through the thoracic spine. After the administration of contrast, axial and sagittal T1 spin echo with fat saturation through the thoracic spine. COMPARISON: [place], [place], [place] PET CT FUSION SKULL 2 THIGH, 05/27/2019, 16:49. FINDINGS: Image quality: Excellent. Alignment and curvature: There is normal bony alignment. Marrow: Marrow is of normal overall signal. Abnormal signal is noted at T6, T7, T12 and to a lesser degree at T8, T11. These areas also demonstrate contrast enhancement. No acute vertebral body compression fractures. Spinal cord: Visualized spinal cord is of normal signal and size, without abnormal enhancement. Paraspinous soft tissues: No paravertebral masses. Hepatic cysts are noted.. Right upper lobe mass is present, as previously identified. Miscellaneous: Central canal and foramina appear widely patent at all scanned levels. IMPRESSION: 1. Abnormal signal and enhancement in thoracolumbar spine are concerning for metastatic disease. 2. Right upper lobe mass concerning for neoplasm, as previously identified. Dictated by: Mary Jane Hunter M.D. on 06/12/2019 at 13:21 Approved by: Mary Jane Hunter M.D. on 06/12/2019 at 13:39
--- NOTE | 2019-06-12 11:08 | DI.MRI.S_ITS ---
PROCEDURE: MR LUMBAR SPINE WO/W CON INDICATIONS: abnormal pet scan TECHNIQUE: Noncontrast sagittal T1 spin echo and T2 fast spin echo, sagittal STIR, axial T1 and T2 fast spin echo through the lumbar spine. In cases with scoliosis, additional coronal T2 fast spin echo may be performed. After the administration of contrast, sagittal and axial T1 spin echo with fat saturation through the lumbar spine. COMPARISON: [facility], MR, MR THORACIC SPINE WO/W CON, 06/12/2019, 12:12. [facility], NM, NM PET CT FUSION SKULL 2 THIGH, 05/27/2019, 16:49. FINDINGS: Image quality: Excellent. Alignment and curvature: There is trace retrolithesis of L1 on L2, trace anterolithesis of L3 on L4, L4 on L5. Marrow: Marrow is of normal overall signal. Abnormal signal and enhancement is present at T12, L2, L3, L4, S1. No acute vertebral body compression fractures. No suspicious marrow enhancement. Spinal cord: Conus medullaris terminates at the L2 level. Visualized spinal cord demonstrates normal signal, without suspicious enhancement. Paraspinous soft tissues: No paravertebral masses or abnormal enhancement. Hepatic cysts are noted. Discs: Moderate desiccation is present at the lumbar spine. L1-L2: Mild disc bulge with mild spinal stenosis. Minimal left foraminal narrowing. Facet hypertrophy is present. L2-L3: Mild disc bulge without spinal stenosis. Minimal to mild left foraminal narrowing. Facet hypertrophy is present. L3-L4: Mild disc bulge with minimal spinal stenosis. Minimal to mild right and minimal left foraminal narrowing with facet and ligamentum flavum hypertrophy. L4-L5: Mild disc bulge with superimposed right which are paracentral protrusion. There is minimal compromise of the right lateral recess. No foraminal narrowing. Facet hypertrophy is present. L5-S1: Mild disc bulge without spinal stenosis. Moderate to severe bilateral foraminal narrowing with facet hypertrophy. IMPRESSION: 1. Multilevel areas of abnormal signal and enhancement as above highly suggestive of metastatic disease. 2. Multilevel degenerative changes as above. Dictated by: Mary Jane Hunter M.D. on 06/12/2019 at 13:39 Approved by: Mary Jane Hunter M.D. on 06/12/2019 at 13:45
== END ==
PROVIDERS: PCP Nurse Practitioner; Referring Provider Nurse Practitioner; Visit Provider Nurse Practitioner
DX: R93.89 Abnormal findings on diagnostic imaging of other specified body structures (principal); R91.8 Other nonspecific abnormal finding of lung field; C79.9 Secondary malignant neoplasm of unspecified site; K76.89 Other specified diseases of liver; M47.816 Spondylosis without myelopathy or radiculopathy, lumbar region; M47.817 Spondylosis without myelopathy or radiculopathy, lumbosacral region
CPT/HCPCS: 72157; 72158; A9579

== ENCOUNTER 2019-06-26 06:51 | Outpatient (CLI) | payer MEDICARE, OTHER, SELFPAY ==
[2019-02-07 12:26] VITALS: BMI 18.9
[2019-06-26] VITALS (11 sets, daily range): BP systolic 142–164; BP diastolic 90–103; PULSE 90–120; RESP 14–18; TEMP 36.2–36.7; O2SAT 96–100; BMI 18.1
[2019-06-26 08:15] LABS: Platelet Count 286 X10^3/uL (150-400)
[2019-06-26 08:16] LABS: Prothrombin Time 11.7 SECONDS (10.1-12.7)
[2019-06-26 08:20] LABS: Estimated Glomerular Filt Rate > 60.0 mL/min (>60)
[2019-06-26] MEDS: fentaNYL 100 MCG/2 ML INJ 50 MCG IV (09:38)
[2019-06-26] MEDS: MIDAZOLAM 2 MG/2 ML VIAL 1 MG IV (09:39)
--- NOTE | 2019-06-26 09:41 | DI.CT.S_ITS ---
PROCEDURE: CT BIOPSY LUNG RT Sedation analgesia for 30 minutes. INDICATIONS: right lung mass with metastatis to neck, vertebrae and pelvi TECHNIQUE: The indications, alternatives, benefits, risks, and possible complications of the procedure were communicated to the patient. Informed written consent from the patient was obtained and placed in the chart. Continuous EKG and hemodynamic monitoring was started by trained personnel. The patient was brought to the CT suite and lifter driver spiral CT imaging was performed with localization grid. The appropriate site for percutaneous access to the biopsy target was marked, was prepped and draped sterilely, and was infused with local anaesthesia. Under CT guidance, a core biopsy trocar and needle set was advanced to the biopsy target, and specimen(s) were obtained. The trocar and needle were then removed, and the patient was sent for post-procedure monitoring. COMPARISON: None. FINDINGS: Biopsy site: Anterior left upper lobe lung mass. Needle: 20 gauge biopsy needle with a 19 gauge introducer trocar. Number of passes: 1 Medications: 1% lidocaine for local anaesthesia. IV Fentanyl and Versed for conscious sedation for 20 minutes (see nursing record). Complications: None. IMPRESSION: Successful CT-guided biopsy of anterior right upper lobe lung mass. Dictated by: Paulo Tang M.D. on 06/26/2019 at 11:21 Approved by: Paulo Tang M.D. on 06/26/2019 at 11:21
--- NOTE | 2019-06-26 11:30 | DI.RAD.S_ITS ---
PROCEDURE: XR CHEST 1V INDICATIONS: 2 hour post bx right lung TECHNIQUE: One view of the chest was acquired. COMPARISON: [facility], CT, CT BIOPSY LUNG RT, 06/26/2019, 8:45. [facility], CR, XR CHEST 1V, 02/07/2019, 10:01. FINDINGS: Surgical changes and devices: None. Lungs and pleura: Trace pneumothorax seen on prior CT biopsy images is not radiographically visible. Left upper lobe nodule as before Mediastinum: Mediastinal contours appear normal. Heart size is normal. Bones and chest wall: No suspicious bony lesions. Overlying soft tissues appear unremarkable. IMPRESSION: No radiographically visible pneumothorax. Dictated by: Michael Lopez M.D. on 06/26/2019 at 11:23 Approved by: Michael Lopez M.D. on 06/26/2019 at 11:26
--- NOTE | 2019-06-26 11:40 | SUR.PHASEII ---
pt doing well post procedure. Diet as tolerated. Scant amount of blood noted upon coughing r/t post nasal drip. BA to Rchest wall is CDI. Pt denies SOB and pain Vitals are stable
== END 2019-06-26 11:53 | disposition home or self-care (01) ==
PROVIDERS: PCP Nurse Practitioner; Referring Provider Internal Medicine Hematology & Oncology; Visit Provider Internal Medicine Hematology & Oncology
PROC: BB24ZZZ Computerized Tomography (CT Scan) of Bilateral Lungs (ICD-10-PCS; CPT 32408; principal; 2019-06-26 08:00)
DX: C34.91 Malignant neoplasm of unspecified part of right bronchus or lung (principal)
CPT/HCPCS: 32405; 71045; 77012; 82565; 85049; 85610; J2250; J3010

== ENCOUNTER 2019-07-15 11:53 | Outpatient (CLI) | payer MEDICARE, OTHER, SELFPAY ==
[2019-02-07 12:26] VITALS: BMI 18.9
[2019-07-15] VITALS (11 sets, daily range): BP systolic 160–189; BP diastolic 88–126; PULSE 75–94; RESP 16–28; TEMP 36.7–37.1; O2SAT 91–100; BMI 37.8
--- NOTE | 2019-07-15 | PATH_ITS ---
[facility] Accession Number: [id number] . 01 Material submitted: . lung - RIGHT UPPER LOBE LUNG BIOPSY . 02 Diagnosis: Lung, Right Upper Lobe, Core Needle Biopsy: Squamous cell carcinoma; please see comment. [facility] 07/17/2019 1410 Local . 02 Comment: As part of routine quality assurance qa lab analyst, this case was also reviewed by Dr. Alejandro, who agrees with the interpretation. Dr. Márquez discussed preliminary results with Dr. Lopez on 07/16/19. PDL-1 testing will be performed, and the results reported as an addendum. . 02 Electronically signed: . Yeimi Márquez MD, Pathologist NPI- [id number] . 01 Gross description: . RIGHT UPPER LOBE LUNG BIOPSY: Received in formalin are multiple fragment(s) of mata, soft tissue measuring 0.1 x 0.1 x 0.1 cm to 0.3 x 0.1 x 0.1 cm submitted entirely in 1 cassette(s) /[facility] 07/15/20192042 Local . 02 Microscopic: . Immunohistochemical stains were performed to characterize the cells of interest. All control stains showed appropriate reactivity. . RESULTS: TTF-1: Negative. Napsin A: Negative. P40: Positive. CK5/6: Strongly positive. JOSE-3: Negative. . INTERPRETATION: The immunophenotype is compatible with a squamous cell carcinoma and mitigates against an interpretation of primary lung adenocarcinoma or metastatic breast carcinoma. . * This test was developed and its performance characteristics determined by [employer]. It has not been cleared or approved by the U.S. Food and Drug Administration. The FDA has determined that such clearance or approval is not necessary. This test is used for clinical purposes. It should not be regarded as investigational or for research. . 02 Pathologist provided ICD-10: C34.90 . 02 CPT . 528718, C77494, R97181 Performed at: 01 [facility] [address] [id number] MD Dustin Saeed MD Phone: [phone] Performed at: [id number] [place], [place] [id number] MD Yeimi Márquez MD Phone: [phone]
--- NOTE | 2019-07-15 | DI.RAD.S_ITS ---
PROCEDURE: XR CHEST 1V INDICATIONS: Post lung biopsy TECHNIQUE: One view of the chest was acquired. COMPARISON: [facility], CT, CT BIOPSY LUNG RT, 06/26/2019, 8:45. [facility], CR, XR CHEST 1V, 06/26/2019, 11:04. FINDINGS: Surgical changes and devices: Surgical clips project over the left chest wall. Lungs and pleura: Persistent right upper lung zone mass. Pulmonary emphysematous changes, stable. No new, acute airspace disease. No pleural effusions or pneumothorax. Mediastinum: Mediastinal contours appear normal. Heart size is normal. Bones and chest wall: No suspicious bony lesions. Overlying soft tissues appear unremarkable. IMPRESSION: Stable examination of the chest. Stable right upper lobe lung mass. No pneumothorax visualized status post right lung biopsy. Dictated by: Shaggy Shelby M.D. on 07/15/2019 at 17:35 Approved by: Shaggy Shelby M.D. on 07/15/2019 at 17:38
--- NOTE | 2019-07-15 11:57 | DI.CT.S_ITS ---
PROCEDURE: CT BIOPSY LUNG RT INDICATIONS: RIGHT lung nodule upper lung biopsy TECHNIQUE: The indications, alternatives, benefits, risks, and possible complications of the procedure were communicated to the patient. Informed written consent from the patient was obtained and placed in the chart. Continuous EKG and hemodynamic monitoring was started by trained personnel. The patient was brought to the CT suite and registration coordinator spiral CT imaging was performed with localization grid. The appropriate site for percutaneous access to the biopsy target was marked, was prepped and draped sterilely, and was infused with local anaesthesia. Under CT guidance, a core biopsy trocar and needle set was advanced to the biopsy target, and specimen(s) were obtained. The trocar and needle were then removed, and the patient was sent for post-procedure monitoring. COMPARISON: [facility], CT, CT BIOPSY LUNG RT, 06/26/2019, 8:45. FINDINGS: Biopsy site: Anterior right upper lobe Needle: 20 gauge biopsy needle with introducer trocar. Number of passes: 7 Medications: 1% lidocaine for local anaesthesia. IV Fentanyl and Versed for conscious sedation was not used Complications: None. IMPRESSION: Successful CT-guided biopsy of anterior right upper lobe mass . Dictated by: Shaggy Shelby M.D. on 07/15/2019 at 15:12 Approved by: Shaggy Shelby M.D. on 07/15/2019 at 15:22
[2019-07-15 13:24] LABS: Hematocrit 42.4 % (36-46); Platelet Count 262 X10^3/uL (150-400)
[2019-07-15 13:41] LABS: Prothrombin Time 11.5 SECONDS (10.1-12.7)
[2019-07-15 13:46] LABS: BUN Creatinine Ratio 16.7 (6-22); Blood Urea Nitrogen 11 mg/dL (7-17); Estimated Glomerular Filt Rate > 60.0 mL/min (>60)
--- NOTE | 2019-07-15 17:11 | SUR.PHASEII ---
Denied sob or pain
--- NOTE | 2019-07-15 17:17 | SUR.PHASEII ---
Dr. Shelby notified patient's respiratory rate 24-28, denied shortness of breath or pain. No new orders.
== END 2019-07-15 17:43 | disposition home or self-care (01) ==
PROVIDERS: PCP Nurse Practitioner; Referring Provider Internal Medicine Hematology & Oncology; Visit Provider Internal Medicine Hematology & Oncology
PROC: BB24ZZZ Computerized Tomography (CT Scan) of Bilateral Lungs (ICD-10-PCS; CPT 32408; principal; 2019-07-15 15:00)
DX: C34.11 Malignant neoplasm of upper lobe, right bronchus or lung (principal); Z85.3 Personal history of malignant neoplasm of breast
CPT/HCPCS: 32405; 36415; 71045; 77012; 82565; 84520; 85014; 85049; 85610

== ENCOUNTER → 2019-07-23 13:20 | Oncology outpatient (ONC) | payer MEDICARE, OTHER, SELFPAY ==
[2019-02-07 12:26] VITALS: BMI 18.9
--- NOTE | 2019-06-18 09:05 | P.CONONC_ITS ---
History of Present Illness - Data of Consult Patient: new to practice Consult date: 06/18/19 Requesting Physician: MICHELE Mead Primary Care Provider: MICHELE Mead - Consult Narrative Reason for consult: Right lung mass with metastasis. Narrative: Aziza Alonzo is a 78 year old female. Patient is a current smoker. She said that she stopped smoking yesterday (06/17/2019). She has history of breast cancer. It was diagnosed 16 years ago (about in 2003). She underwent right mastectomy with right ALND. She had chemotherapy followed by radiation therapy. She then took letrazole for 5 years. She also has history of chronic atrial fibrillation currently on anticoagulation. She has history of COPD. Since 2015 after her , she has lost a total 30 lb. However patient said that she has not noticed any recent weight loss. In Jan, 2019, she had mini- stroke, The head CT at ER was without acute intracranial bleeding. In Feb, 2019, she developed cough, especially when she tipped her head backward. She also noticed right side neck swelling. Her voice became deep and raspy and feels like a frog in the throat. Patient was evaluated by her primary care provider MICHELE Guevara in April 2019. CT soft tissue neck with contrast on 05/12/2019 showed a finding of two potentially malignant masses within the right upper lobe, the largest of which was located anteriorly near the right mediastinal border measuring up to 2.9 x 1.4 x 1.5 cm. Then, she underwent PET scan on 05/28/2019 that showed malignant appearing isotope uptake at the lobulated anterior medial right upper lobe lesion, a single focus of abnormal isotope uptake at the low right neck/supraclavicular fossa in close proximity to the lung mass which abuts the pleural surface, and four areas of suspicious osseous isotope uptake 3 of which are below the 2.5 maximal SUV threshold for significant likelihood of metastatic disease. These are located within the posterior vertebral body of T6 and T7, within the central vertebral body of L4, and the single osseous abnormality that reaches the 2.5 threshold is located within the right sacrum. Thereafter, MRI lumbar spine without and with contrast on 06/12/2019 showed multiple level areas of abnormal signal and enhancement highly suggestive of metastatic disease in addition to multilevel degenerative changes. Same day MRI thoracic spine showed abnormal signal and enhancement in thoracolumbar spine concerning for metastatic disease. She has some shortness of breath. The cough has improved and not as bad. No headache. No chest pain. No abdominal pain. No diarrhea or constipation. Denies any pain in the joints or back. She said she used to walk 5 miles per day. Now she is walking half a mile a day. Raeann BAUTISTA Patient reports pain?: No Home Medications and Allergies Home Medications Medication Instructions Recorded Confirmed Type cholecalciferol (vitamin D3) 50 2,000 unit PO DAILY cap 11/05/17 06/18/19 History mcg (2,000 unit) capsule calcium carbonate 600 mg calcium 600 mg PO DAILY #30 tab 12/05/17 06/18/19 Rx (1,500 mg) tablet alendronate 70 mg tablet 70 mg PO QWEEK #12 tab 10/28/18 06/18/19 Rx simvastatin 20 mg tablet 20 mg PO QDAY #90 tab 10/28/18 06/18/19 Rx latanoprost 1 drp EYE-BOTH DAILY 02/07/19 06/18/19 History timolol maleate 1 drp EYE-BOTH BID 02/07/19 06/18/19 History promethazine 12.5 mg tablet 12.5 mg PO TID PRN #20 tab 05/05/19 06/18/19 Rx varenicline 0.5 mg (11)-1 mg (42) See Rx Instructions PO PER PKG DIR 05/05/19 06/18/19 Rx tablets in a dose pack #53 each metoprolol tartrate 100 mg tablet 100 mg PO BID #180 tab 05/19/19 06/18/19 Rx rivaroxaban 20 mg tablet 20 mg PO DAILY #90 tab 05/19/19 06/18/19 Rx lisinopril 30 mg tablet 30 mg PO DAILY #90 tab 05/31/19 06/18/19 Rx Allergies Allergy/AdvReac Type Severity Reaction Status Date / Time No Known Drug Allergies Allergy Unverified 05/29/19 09:08 Medical History - Medical, Surgical, Family History Medical History: Medical History (Last Updated 06/18/19 @ 09:35 by Stephan Mai MD) Breast cancer Cataract Onset Date: ~03/2014 COPD (chronic obstructive pulmonary disease) History of vaginal delivery Hyperlipidemia Hypertension Surgical History: Surgical History (Last Reviewed 05/29/19 @ 10:06 by MICHELE Mead) Anesthesia History of right mastectomy Onset Date: 12/2002 Family History: Family History (Last Reviewed 05/29/19 @ 10:06 by MICHELE Mead) Brother Age: 73 Prostate cancer Diabetes mellitus Hypertension Child Age: 50 Hypertension High cholesterol Child Age: 47 Diabetes mellitus Hypertension High cholesterol Thrombocytopenic purpura Acid reflux Depression Heart attack Mother Diabetes mellitus Hypertension Stroke Breast cancer Sister Age: 80 Hypertension High cholesterol Family history of thyroid problem Father Pancreatic cancer - Social History Smoking Status: Current every day smoker Smoking packs per day: 0.5 Years smoked: 50 Quit Date: 06/17/19 Substance Use Type: does not use Alcohol Intake: current (rum and choke) Review of Systems All systems PM: reviewed and no additional remarkable complaints except as stated (Except those mentioned in the history of present illness.) Exam Vital signs: Last Vital Signs Temp 99.1 F 06/18/19 09:13 Pulse 88 06/18/19 09:13 Resp 20 06/18/19 09:13 BP 163/95 H 06/18/19 09:13 Pulse Ox 97 06/18/19 09:13 Narrative: ECOG 1 Gen: WDWN, NAD, pleasant and cooperative. She came here by herself. HEENT: NCAT, EOMI, PERRLA, anicteric sclera. Neck: Supple, No palpable thyromegaly. There is a 0.5 x 1 cm node palpable relatively deep midway along the posterior margin of right cleidomastoid muscle. Respiratory: Decreased breathing sound heard in both sides. No wheezes. No crackles. Cardiovascular: Irregularly irregular heart rhythm, S1-S2 normal. no M/G/R. No lower extremity edema. Abdomen: Soft, NTND, BS normal, no palpable organomegaly Extremities: No LE pitting edema. Lymphatic: Lymph node of the neck see above. No palpable lymph nodes in axillae, or groins. Neurological: AOx3, CN II-XII grossly intact. No focal motor or sensory deficit. Psychiatric: Normal affect, appropriate mood, no depression, no anxiety. Results - Labs I reviewed the CT and PET scan results as well as the images with the patient. The PET-CT showed a hypermetabolic lesion in the right neck, intensely hypermetabolic lesion in the right upper chest and to my eyes multiple lesions affecting the vertebra as well as the sacrum and pelvic bones. - Imaging Additional studies: Procedures Application of splint (11/29/10) Insertion of intraocular lens prosthesis at time of cataract extraction, one- stage (04/27/14) Phacoemulsification and aspiration of cataract (04/27/14) Assessment and Plan (1) Malignant neoplasm of right lung Overview: 78-year-old female with remote history of breast cancer, medical cormorbidities notable for COPD, and atrial fibrillation on Xarelto. She presented with cough, voice changes, and palpable right neck node in February 2019. Workup including CT of the neck in April 2019 and PET scan in May 2018 showed intensely hypermetabolic lesion in the right upper lung, right neck, multiple vertebral as well as pelvic and sacrum. Assessment: I explained to the patient that the clinical presentation as well as the imaging studies highly suggest metastatic malignancy. Given her history of smoking, most likely patient has right lung primary cancer with metastasis to the right neck lymph node as well as to multiple skeletal locations including vertebra, pelvic bones and sacrum. However there are no apparent lymph nodes identified on PET scan involving hilar or mediastinum. Usually lung cancer would metastasize first to local regional lymph nodes. Given these somewhat atypical presentation, possible recurrence of her previous breast cancer is also a concern. Based on patient's description, her previous right breast cancer most likely is an ER positive breast cancer. It is a known phenomenon to see late distant recurrence even years after the patient has completed the full course of treatment. I explained that the most important at this point is to obtain tissue diagnosis to find out what cancer we are dealing with. Patient voiced understanding. Plan: Obtain previous records of her right breast cancer CT guided biopsy of right lung mass CBC, CMP RTC in 2 weeks. 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
[2019-06-18 09:13] VITALS: BP 163/95; PULSE 88; RESP 20; TEMP 37.3; O2SAT 97
--- NOTE | 2019-06-18 09:50 | ONC.MSW ---
Description: New Pt F/F Visit Activity: Met with pt for first f/f visit. Discussed in more detail the ongoing availability of assistance and resources. She had hoped that her dtr was going to be able to attend this appt, however she lives in [place] and is not able to travel right now due to the Covid-19 virus. She shared that she does have a local granddaughter who is very helpful, has been going to the grocery store for her and supporting her by phone, primarily. Pt was a previous pt here at [facility] several years ago the first time she had cancer, as was her . Her 4-years ago. No immediate needs are identified at this time. Will continue to monitor as pt's treatment plan is developed.
[2019-06-18 10:26] LABS: Add Manual Diff / Slide Review NO; Basophils Absolute Auto 0 /uL (0-100); Basophils Percent Auto 0.6 % (0-2); Eosinophils Absolute Auto 0 /uL (0-450); Eosinophils Percent Auto 0.8 % (2-4); Hematocrit 44.6 % (36-46); Lymphocytes Absolute Auto 1700 /uL (1100-4500); Lymphocytes Percent Auto 29.2 % (25-40); Mean Corpuscular HGB Conc 33.7 % (30-36); Mean Corpuscular Hemoglobin 32.3 PG (26-34); Mean Corpuscular Volume 95.8 fL (80-100); Monocytes Absolute Auto 500 /uL (0-900); Monocytes Percent Auto 8.9 % (3-14); Neutrophils Absolute Auto 3600 /uL (1500-7000); Neutrophils Percent Auto 60.5 % (50-75); Platelet Count 271 X10^3/uL (150-400); Red Blood Cell Count 4.66 X10^6/uL (4.0-5.2)
[2019-06-18 10:38] LABS: Alanine Aminotransferase 47 IU/L (<35); Albumin 4.5 g/dL (3.5-5.0); Albumin Globulin Ratio 1.5 (1.0-2.8); Alkaline Phosphatase 92 U/L (38-126); Aspartate Aminotransferase 47 IU/L (14-36); BUN Creatinine Ratio 19.4 (6-22); Bilirubin Total 0.7 mg/dL (0.2-1.3); Blood Urea Nitrogen 12 mg/dL (7-17); Calcium 9.7 mg/dL (8.4-10.2); Carbon Dioxide 29 mmol/L (22-32); Chloride 99 mmol/L (98-107); Estimated Glomerular Filt Rate > 60.0 mL/min (>60); Globulin 3.1 g/dL (1.7-4.1); Glucose 86 mg/dL (80-110); HEMOLYSIS < 15 (0-50); Potassium 3.9 mmol/L (3.4-5.1); Sodium 136 mmol/L (137-145); Total Protein 7.6 g/dL (6.3-8.2)
--- NOTE | 2019-06-23 15:32 | PC.NURSE ---
Informed pt about procedure on 06/25 at 7am. Instructed to go to main entrance for check in and labs. Instructed her to stop xarelto 48hrs prior to surgery and may resume xarelto 48 hours after procedure. Pt aware to not eat or drink anything past midnight the night prior to procedure. Per import export coordinator in [place]. a [facility] nurse will call and discuss pre and post care as well procedure and answer any question for patient. This scientific technical writer also passed that information on to pt, pt verbalized understanding.
--- NOTE | 2019-06-26 | PATH_ITS ---
[facility] Accession Number: [id number] . 01 Material submitted: . lung - ANTERIOR R LUNG APEX . 01 Clinical history: . ANTERIOR R LUNG APEX MASS IN ALF SMOKER . 01 Diagnosis: Right Lung [place], Anterior, Needle Core Biopsy: Scant lung parenchyma with scattered severely atypical epithelial cells (see comment). MRV 07/01/2019 1221 Local . 01 Comment: The core is not considered diagnostic for malignancy; however, scattered severely atypical discohesive epithelial cells are seen singly along the alveolar montanez and within the alveolar spaces. A complete lepidic growth pattern is not seen. These atypical cells exhibit enlarged nuclei with dense hyperchromasia and sometimes prominent nucleoli with moderately abundant cytoplasm. The remainder of the biopsy shows an interstitial mixed acute and chronic inflammatory infiltrate and a slight interstitial fibrosis. . A limited panel of *immunostains is obtained to evaluate the atypical cells of interest, with controls stained appropriately. The atypical cells show uniform expression with the lung marker TTF1 and are negative with the breast marker GATA3. These combined morphologic and immunophenotypic findings render a differential diagnosis of reactive atypical pneumcytes versus the possibility of scattered lung adenocarcinoma cells; however, as indicated above, this is not diagnostic of adenocarcinoma, particularly in view of the absence of a typical lepidic growth pattern and absence of any invasive cells. Additionally, in this limited biopsy, there is no evidence for a metastatic breast carcinoma. Ultimately, consideration should be given to the possibility that the biopsy is not territory representative of the lesion (particularly in view of the patient's history of right lung masses with bone and neck soft tissue metastases by imagaing studies). It is also noted that the patient has a remote history of breast carcinoma. . The findings of this case are verbally provided by Dr. Acevedo to Nurse Powell on 07/01/2019 at 11:20 a.m. . *This test was developed and its performance characteristics determined by [facility]. It has not been cleared or approved by the U.S. Food and Drug Administration. The FDA has determined that such clearance or approval is not necessary. This test is used for clinical purposes. It should not be regarded as investigational or for research. . 01 Electronically signed: . Geena Acevedo MD, Pathologist NPI- [id number] . 01 Gross description: . Received in formalin is a needle core biopsy (length-0.8 cm, diameter-less than 0.1 cm) of velazquez-white semi-translucent tissue. Submitted intact in cassette A1. ([id number]) /MRV 06/29/2019 0031 Local . 01 Pathologist provided ICD-10: R91.8 . 01 CPT . 757989, [id number], [id number] Performed at: 01 [facility] [address] [place] [address], [place], [place] [id number] MD Dustin Saeed MD Phone: [phone]
--- NOTE | 2019-07-01 11:26 | PC.NURSE ---
Addendum entered by Andre Solis R.N. 07/01/19 11:27: PER PATHOLOGIST FORMAL REPORT TO FOLLOW, WILL PLACE NOTE ON DR. DEGROOT'S DESK. Original Note: DR PORRAS FROM [email or web address] CALLED TO GIVE REPORT OVER THE PHONE FOR DR DEGROOT. VERBAL DIAGNOSIS OF THE LUNG BIOPSY SHOWS ATYPIA- NOT DIAGNOSTIC OF MALIGNANCY.
[2019-07-09 14:54] VITALS: BP 182/100; PULSE 100; RESP 20; TEMP 36.8; O2SAT 97
--- NOTE | 2019-07-09 15:05 | P.PNONC_ITS ---
PN -Subjective Interval history: ID/CC: 78 year old female with metastatic cancer of unknown primary. HPI: Aziza Alonzo is a 78 year old female. Patient is a current smoker. She said that she stopped smoking yesterday (06/17/2019). She has history of breast cancer. It was diagnosed 16 years ago (about in 2003). She underwent right mas tectomy with right ALND. She had chemotherapy followed by radiation therapy. She then took letrazole for 5 years. She also has history of chronic atrial fibrillation currently on anticoagulation. She has history of COPD. Since 2015 after her , she has lost a total 30 lb. However patient said that she has not noticed any recent weight loss. In Jan, 2019, she had mini- stroke, The head CT at ER was without acute intracranial bleeding. In Feb, 2019, she developed cough, especially when she tipped her head backward. She also noticed right side neck swelling. Her voice became deep and raspy and feels like a frog in the throat. Patient was evaluated by her primary care provider MICHELE Guevara in April 2019. CT soft tissue neck with contrast on 05/12/2019 showed a finding of two potentially malignant masses within the right upper lobe, the largest of which was located anteriorly near the right mediastinal border measuring up to 2.9 x 1.4 x 1.5 cm. Then, she underwent PET scan on 05/28/2019 that showed malignant appearing isotope uptake at the lobulated anterior medial right upper lobe lesion, a single focus of abnormal isotope uptake at the low right neck/castano praclavicular fossa in close proximity to the lung mass which abuts the pleural surface, and four areas of suspicious osseous isotope uptake 3 of which are below the 2.5 maximal SUV threshold for significant likelihood of metastatic disease. These are located within the posterior vertebral body of T6 and T7, within the central vertebral body of L4, and the single osseous abnormality that reaches the 2.5 threshold is located within the right sacrum. Thereafter, MRI lumbar spine without and with contrast on 06/12/2019 showed multiple level areas of abnormal signal and enhancement highly suggestive of metastatic disease in addition to multilevel degenerative changes. Same day MRI thoracic spine showed abnormal signal and enhancement in thoracolumbar spine concerning for metastatic disease. She has some shortness of breath. The cough has improved and not as bad. No headache. No chest pain. No abdominal pain. No diarrhea or constipation. Denies any pain in the joints or back. She said she used to walk 5 miles per day. Now she is walking half a mile a day. Interval History: On 06/26/[address]-guided biopsy of the right upper lung lesion. Unfortunately only scant lung parenchyma with scattered severely atypical epithelial cells were noted and the core is not considered diagnostic for malignancy. Clinically patient has not noticed any new signs or symptoms. - Patient Self-Reported Symptoms SR ears, nose, mouth, throat issues: Hoarseness, Swollen glands SR Cardiovascular issues: Palpitations SR Musculoskeletal issues: Cold hands or feet - Additional ROS All systems PM: reviewed and no additional remarkable complaints except as stated (those mentioned in HPI, Interval History and SR above.) Home Medications and Allergies Home Medications Medication Instructions Recorded Confirmed Type cholecalciferol (vitamin D3) 50 2,000 unit PO DAILY cap 11/05/17 07/09/19 History mcg (2,000 unit) capsule calcium carbonate 600 mg calcium 600 mg PO DAILY #30 tab 12/05/17 07/09/19 Rx (1,500 mg) tablet alendronate 70 mg tablet 70 mg PO QWEEK #12 tab 10/28/18 07/09/19 Rx simvastatin 20 mg tablet 20 mg PO QDAY #90 tab 10/28/18 07/09/19 Rx latanoprost 1 drp EYE-BOTH DAILY 02/07/19 07/09/19 History timolol maleate 1 drp EYE-BOTH BID 02/07/19 07/09/19 History promethazine 12.5 mg tablet 12.5 mg PO TID PRN #20 tab 05/05/19 07/09/19 Rx varenicline 0.5 mg (11)-1 mg (42) See Rx Instructions PO PER PKG DIR 05/05/19 07/09/19 Rx tablets in a dose pack #53 each rivaroxaban 20 mg tablet 20 mg PO DAILY #90 tab 05/19/19 07/09/19 Rx lisinopril 30 mg tablet 30 mg PO DAILY #90 tab 05/31/19 07/09/19 Rx metoprolol tartrate 200 mg PO BID 07/09/19 07/09/19 History Allergies Allergy/AdvReac Type Severity Reaction Status Date / Time No Known Drug Allergies Allergy Unverified 05/29/19 09:08 Exam Vital signs: Last Vital Signs Temp 98.3 F 07/09/19 14:54 Pulse 100 H 07/09/19 14:54 Resp 20 07/09/19 14:54 BP 182/100 H 07/09/19 14:54 Pulse Ox 97 07/09/19 14:54 Narrative: ECOG 1 Gen: WDWN, NAD, pleasant and cooperative. She came here by herself. HEENT: NCAT, EOMI, PERRLA, anicteric sclera. Neck: Supple, No palpable thyromegaly. There is a 0.5 x 1 cm node palpable relatively deep midway along the posterior margin of right cleidomastoid muscle. Respiratory: Decreased breathing sound heard in both sides. No wheezes. No crackles. Cardiovascular: Irregularly irregular heart rhythm, S1-S2 normal. no M/G/R. No lower extremity edema. Abdomen: Soft, NTND, BS normal, no palpable organomegaly Extremities: No LE pitting edema. Lymphatic: Lymph node of the neck see above. No palpable lymph nodes in axillae, or groins. Neurological: AOx3, CN II-XII grossly intact. No focal motor or sensory deficit. Psychiatric: Normal affect, appropriate mood, no depression, no anxiety. Results - Labs Laboratory Last Values WBC 6.0 X10^3/uL (4.5-11.0) 06/18/19 10:10 RBC 4.66 X10^6/uL (4.0-5.2) 06/18/19 10:10 Hgb 15.0 g/dL (12.0-16.0) 06/18/19 10:10 Hct 44.6 % (36-46) 06/18/19 10:10 MCV 95.8 fL (80-100) 06/18/19 10:10 MCH 32.3 PG (26-34) 06/18/19 10:10 MCHC 33.7 % (30-36) 06/18/19 10:10 RDW 14.0 % (11.6-14.8) 06/18/19 10:10 Plt Count 271 X10^3/uL (150-400) 06/18/19 10:10 Neut % (Auto) 60.5 % (50-75) 06/18/19 10:10 Lymph % (Auto) 29.2 % (25-40) 06/18/19 10:10 [place] % (Auto) 8.9 % (3-14) 06/18/19 10:10 Eos % (Auto) 0.8 % (2-4) L 06/18/19 10:10 Baso % (Auto) 0.6 % (0-2) 06/18/19 10:10 Neut # (Auto) 3600 /uL (0763-0479) 06/18/19 10:10 Lymph # (Auto) 1700 /uL (0229-2677) 06/18/19 10:10 [place] # (Auto) 500 /uL (0-900) 06/18/19 10:10 Eos # (Auto) 0 /uL (0-450) 06/18/19 10:10 Baso # (Auto) 0 /uL (0-100) 06/18/19 10:10 Sodium 136 mmol/L (137-145) L 06/18/19 10:10 Potassium 3.9 mmol/L (3.4-5.1) 06/18/19 10:10 Chloride 99 mmol/L (98-107) 06/18/19 10:10 Carbon Dioxide 29 mmol/L (22-32) 06/18/19 10:10 BUN 12 mg/dL (7-17) 06/18/19 10:10 Creatinine 0.62 mg/dL (0.52-1.04) 06/18/19 10:10 Estimated GFR > 60.0 mL/min (>60) 06/18/19 10:10 BUN/Creatinine Ratio 19.4 (6-22) 06/18/19 10:10 Glucose 86 mg/dL (80-110) 06/18/19 10:10 Calcium 9.7 mg/dL (8.4-10.2) 06/18/19 10:10 Total Bilirubin 0.7 mg/dL (0.2-1.3) 06/18/19 10:10 AST 47 IU/L (14-36) H 06/18/19 10:10 ALT 47 IU/L (<35) H 06/18/19 10:10 Alkaline Phosphatase 92 U/L (38-126) 06/18/19 10:10 Total Protein 7.6 g/dL (6.3-8.2) 06/18/19 10:10 Albumin 4.5 g/dL (3.5-5.0) 06/18/19 10:10 Globulin 3.1 g/dL (1.7-4.1) 06/18/19 10:10 Albumin/Globulin Ratio 1.5 (1.0-2.8) 06/18/19 10:10 - Imaging Additional studies: Procedures Application of splint (11/29/10) Insertion of intraocular lens prosthesis at time of cataract extraction, one- stage (04/27/14) Phacoemulsification and aspiration of cataract (04/27/14) Assessment and Plan (1) Malignant neoplasm of right lung Overview: 78-year-old female with remote history of breast cancer, medical cormorbidities notable for COPD, and atrial fibrillation on Xarelto. She presented with cough, voice changes, and palpable right neck node in February 2019. Workup including CT of the neck in April 2019 and PET scan in May 2018 showed intensely hypermetabolic lesion in the right upper lung, right neck, multiple vertebral as well as pelvic and sacrum. Assessment: I talked with the patient about the CT-guided biopsy of the right upper lung nodule. The sample unfortunately is not considered diagnostic for malignancy. I talked with her and her daughter at [place] was on the iPhone that I would recommend a repeat biopsy. I talked with them that it is the most important information about the tissue diagnosis before decide which chemotherapy or other modalities of therapy to proceed. Patient and patient's daughter both voiced understanding. Plan: CT guided biopsy of right lung mass RTC in 2 weeks. 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
--- NOTE | 2019-07-13 10:07 | ONC.SCHED ---
Per Dr. Mai: Please tell patient it's ok to stop blood thinner for 48 hours in order to do US fine needle aspiration as recommended by radiologist. Called patient to inform.
--- NOTE | 2019-07-23 13:09 | P.PNONC_ITS ---
PN -Subjective Interval history: ID/CC: 78 year old female with metastatic cancer of unknown primary. HPI: Aziza Alonzo is a 78 year old female. Patient is a current smoker. She said that she stopped smoking yesterday (06/17/2019). She has history of breast cancer. It was diagnosed 16 years ago (about in 2003). She underwent right mas tectomy with right ALND. She had chemotherapy followed by radiation therapy. She then took letrazole for 5 years. She also has history of chronic atrial fibrillation currently on anticoagulation. She has history of COPD. Since 2015 after her , she has lost a total 30 lb. However patient said that she has not noticed any recent weight loss. In Jan, 2019, she had mini- stroke, The head CT at ER was without acute intracranial bleeding. In Feb, 2019, she developed cough, especially when she tipped her head backward. She also noticed right side neck swelling. Her voice became deep and raspy and feels like a frog in the throat. Patient was evaluated by her primary care provider MICHELE Guevara in April 2019. CT soft tissue neck with contrast on 05/12/2019 showed a finding of two potentially malignant masses within the right upper lobe, the largest of which was located anteriorly near the right mediastinal border measuring up to 2.9 x 1.4 x 1.5 cm. Then, she underwent PET scan on 05/28/2019 that showed malignant appearing isotope uptake at the lobulated anterior medial right upper lobe lesion, a single focus of abnormal isotope uptake at the low right neck/castano praclavicular fossa in close proximity to the lung mass which abuts the pleural surface, and four areas of suspicious osseous isotope uptake 3 of which are below the 2.5 maximal SUV threshold for significant likelihood of metastatic disease. These are located within the posterior vertebral body of T6 and T7, within the central vertebral body of L4, and the single osseous abnormality that reaches the 2.5 threshold is located within the right sacrum. Thereafter, MRI lumbar spine without and with contrast on 06/12/2019 showed multiple level areas of abnormal signal and enhancement highly suggestive of metastatic disease in addition to multilevel degenerative changes. Same day MRI thoracic spine showed abnormal signal and enhancement in thoracolumbar spine concerning for metastatic disease. She has some shortness of breath. The cough has improved and not as bad. No headache. No chest pain. No abdominal pain. No diarrhea or constipation. Denies any pain in the joints or back. She said she used to walk 5 miles per day. Now she is walking half a mile a day. Interval History: On 06/26/[address]-guided biopsy of the right upper lung lesion. Unfortunately only scant lung parenchyma with scattered severely atypical epithelial cells were noted and the core is not considered diagnostic for malignancy. On 07/15/2019, patient underwent repeat CT-guided biopsy of the right upper lung lesion. The final pathology reviewed squamous cell carcinoma of the lung. Clinically patient has not noticed any new signs or symptoms. - Patient Self-Reported Symptoms SR ears, nose, mouth, throat issues: Hoarseness, Swollen glands SR Cardiovascular issues: Palpitations SR Musculoskeletal issues: Cold hands or feet - Additional ROS All systems PM: reviewed and no additional remarkable complaints except as stated Home Medications and Allergies Home Medications Medication Instructions Recorded Confirmed Type cholecalciferol (vitamin D3) 50 2,000 unit PO DAILY cap 11/05/17 07/23/19 History mcg (2,000 unit) capsule calcium carbonate 600 mg calcium 600 mg PO DAILY #30 tab 12/05/17 07/23/19 Rx (1,500 mg) tablet simvastatin 20 mg tablet 20 mg PO QDAY #90 tab 10/28/18 07/23/19 Rx latanoprost 1 drp EYE-BOTH DAILY 02/07/19 07/23/19 History timolol maleate 1 drp EYE-BOTH BID 02/07/19 07/23/19 History promethazine 12.5 mg tablet 12.5 mg PO TID PRN #20 tab 05/05/19 07/23/19 Rx varenicline 0.5 mg (11)-1 mg (42) See Rx Instructions PO PER PKG DIR 05/05/19 07/23/19 Rx tablets in a dose pack #53 each rivaroxaban 20 mg tablet 20 mg PO DAILY #90 tab 05/19/19 07/23/19 Rx lisinopril 30 mg tablet 30 mg PO DAILY #90 tab 05/31/19 07/23/19 Rx alendronate 70 mg tablet 70 mg PO QWEEK #12 tab 07/20/19 07/23/19 Rx metoprolol tartrate 100 mg tablet 200 mg PO BID #360 tab 07/20/19 Rx Allergies Allergy/AdvReac Type Severity Reaction Status Date / Time No Known Drug Allergies Allergy Unverified 05/29/19 09:08 Exam Vital signs: 07/25/19 17:12 Last Vital Signs Temp 98.4 F 07/23/19 13:32 Pulse 55 L 07/23/19 13:32 Resp 20 07/23/19 13:32 BP 154/100 H 07/23/19 13:32 Pulse Ox 98 07/23/19 13:32 Narrative: ECOG 1 Gen: WDWN, NAD, pleasant and cooperative. She came here by herself. HEENT: NCAT, EOMI, PERRLA, anicteric sclera. Neck: Supple, No palpable thyromegaly. There is a 0.5 x 1 cm node palpable relatively deep midway along the posterior margin of right cleidomastoid muscle. Respiratory: Decreased breathing sound heard in both sides. No wheezes. No crackles. Cardiovascular: Irregularly irregular heart rhythm, S1-S2 normal. no M/G/R. No lower extremity edema. Abdomen: Soft, NTND, BS normal, no palpable organomegaly Extremities: No LE pitting edema. Lymphatic: Lymph node of the neck see above. No palpable lymph nodes in axillae, or groins. Neurological: AOx3, CN II-XII grossly intact. No focal motor or sensory deficit. Psychiatric: Normal affect, appropriate mood, no depression, no anxiety. Results - Labs Laboratory Last Values WBC 6.0 X10^3/uL (4.5-11.0) 06/18/19 10:10 RBC 4.66 X10^6/uL (4.0-5.2) 06/18/19 10:10 Hgb 15.0 g/dL (12.0-16.0) 06/18/19 10:10 Hct 44.6 % (36-46) 06/18/19 10:10 MCV 95.8 fL (80-100) 06/18/19 10:10 MCH 32.3 PG (26-34) 06/18/19 10:10 MCHC 33.7 % (30-36) 06/18/19 10:10 RDW 14.0 % (11.6-14.8) 06/18/19 10:10 Plt Count 271 X10^3/uL (150-400) 06/18/19 10:10 Neut % (Auto) 60.5 % (50-75) 06/18/19 10:10 Lymph % (Auto) 29.2 % (25-40) 06/18/19 10:10 [place] % (Auto) 8.9 % (3-14) 06/18/19 10:10 Eos % (Auto) 0.8 % (2-4) L 06/18/19 10:10 Baso % (Auto) 0.6 % (0-2) 06/18/19 10:10 Neut # (Auto) 3600 /uL (5883-2850) 06/18/19 10:10 Lymph # (Auto) 1700 /uL (3856-4855) 06/18/19 10:10 [place] # (Auto) 500 /uL (0-900) 06/18/19 10:10 Eos # (Auto) 0 /uL (0-450) 06/18/19 10:10 Baso # (Auto) 0 /uL (0-100) 06/18/19 10:10 Sodium 136 mmol/L (137-145) L 06/18/19 10:10 Potassium 3.9 mmol/L (3.4-5.1) 06/18/19 10:10 Chloride 99 mmol/L (98-107) 06/18/19 10:10 Carbon Dioxide 29 mmol/L (22-32) 06/18/19 10:10 BUN 12 mg/dL (7-17) 06/18/19 10:10 Creatinine 0.62 mg/dL (0.52-1.04) 06/18/19 10:10 Estimated GFR > 60.0 mL/min (>60) 06/18/19 10:10 BUN/Creatinine Ratio 19.4 (6-22) 06/18/19 10:10 Glucose 86 mg/dL (80-110) 06/18/19 10:10 Calcium 9.7 mg/dL (8.4-10.2) 06/18/19 10:10 Total Bilirubin 0.7 mg/dL (0.2-1.3) 06/18/19 10:10 AST 47 IU/L (14-36) H 06/18/19 10:10 ALT 47 IU/L (<35) H 06/18/19 10:10 Alkaline Phosphatase 92 U/L (38-126) 06/18/19 10:10 Total Protein 7.6 g/dL (6.3-8.2) 06/18/19 10:10 Albumin 4.5 g/dL (3.5-5.0) 06/18/19 10:10 Globulin 3.1 g/dL (1.7-4.1) 06/18/19 10:10 Albumin/Globulin Ratio 1.5 (1.0-2.8) 06/18/19 10:10 - Imaging Additional studies: Procedures Application of splint (11/29/10) Insertion of intraocular lens prosthesis at time of cataract extraction, one- stage (04/27/14) Phacoemulsification and aspiration of cataract (04/27/14) Assessment and Plan (1) Malignant neoplasm of right lung Overview: 78-year-old female with remote history of breast cancer, medical cormorbidities notable for COPD, and atrial fibrillation on Xarelto. She presented with cough, voice changes, and palpable right neck node in February 2019. Workup including CT of the neck in April 2019 and PET scan in May 2018 showed intensely hypermetabolic lesion in the right upper lung, right neck, multiple vertebral as well as pelvic and sacrum. Assessment: Patient underwent repeat biopsy of the upper lung lesion. Patient's daughter was on the phone. I talked with them that the pathology showed squamous cell carcinoma. PD-1 expression is still pending. Patient previous workup including PET scan and MRI indicated distant metastasis involving the vertebra as well as the sacrum. 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 To further confirm the bone metastasis, I will also obtain a bone scan. I described to patient and patient's daughter that for stage IV squamous cell carcinoma, surgical resection of the primary team is not recommended generally. I would recommend chemoimmunotherapy based on keynote 407 trial. I described to them that the chemotherapy included carboplatin and paclitaxel or Abraxane every 3 weeks for 4 cycles followed by single agent pembrolizumab for about 2 years. For chemotherapy patient will need port placement. Patient said that he lives alone. If she will need to do chemotherapy, she will consider moving to [place] and be with her daughter. She said that they are going to discuss with her daughter and make final decisions and will call me on Saturday. Plan: Bone scan Patient will call on Saturday about her decision RTC in 2-3 weeks. 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
[2019-07-23 13:32] VITALS: BP 154/100; PULSE 55; RESP 20; TEMP 36.9; O2SAT 98
--- NOTE | 2019-07-27 11:42 | ONC.SCHED ---
patient has chosen not to do chemo, she might be moving soon and if she changes her mind she will find another oncologist in her new location, I transferred her call to imaging to cancel her NM scan/I offered her to keep her appt to review her decision with Dr Mai but she said she already discussed that with him.
== END ==
PROVIDERS: PCP Nurse Practitioner; Referring Provider Nurse Practitioner; Visit Provider Internal Medicine Hematology & Oncology
DX: C34.11 Malignant neoplasm of upper lobe, right bronchus or lung (principal); M89.9 Disorder of bone, unspecified; J44.9 Chronic obstructive pulmonary disease, unspecified; I48.20 Chronic atrial fibrillation, unspecified; Z79.01 Long term (current) use of anticoagulants; Z85.3 Personal history of malignant neoplasm of breast; Z90.11 Acquired absence of right breast and nipple; Z87.891 Personal history of nicotine dependence; Z86.73 Personal history of transient ischemic attack (TIA), and cerebral infarction without residual deficits
CPT/HCPCS: 36415; 80053; 85025; 99204; 99214